=== PATIENT | female | born 1940 | race Caucasian/White ===

== ENCOUNTER → 2018-03-09 10:53 | Outpatient (CLI) | payer MEDICARE, OTHER, SELFPAY ==
--- NOTE | 2018-03-09 | DI.MG.S_ITS ---
BILATERAL DIGITAL SCREENING MAMMOGRAM 3D/2D WITH CAD: 03/09/2018 CLINICAL: Routine screening. Family history of breast cancer. Comparison is made to exams dated: 03/02/2017 mammogram, 02/04/2016 mammogram, and 01/15/2015 mammogram - [facility]. There are scattered fibroglandular elements in both breasts. Current study was also evaluated with a Computer Aided Detection (CAD) system. No significant masses, calcifications, or other findings are seen in either breast. There has been no significant interval change. IMPRESSION: NEGATIVE There is no mammographic evidence of malignancy. A 1 year screening mammogram is recommended. This exam was interpreted at Station ID: [id number]. NOTE: For mammograms, a report in lay terms will be sent to the patient. Approximately 15% of breast malignancies will not be visualized mammographically. In the management of a palpable breast mass, a negative mammogram must not discourage biopsy of a clinically suspicious lesion. Electronically Signed By: Shakir jeffrey/rina:03/09/2018 21:53:17 letter sent: Normal Exam ACR BI-RADS Category 1: Negative [id number]
== END ==
PROVIDERS: PCP Family Medicine; Visit Provider Family Medicine
DX: Z12.31 Encounter for screening mammogram for malignant neoplasm of breast (principal); Z80.3 Family history of malignant neoplasm of breast
CPT/HCPCS: 77063; 77067

== ENCOUNTER → 2018-03-22 13:34 | Outpatient (CLI) | payer MEDICARE, OTHER, SELFPAY | PROVIDERS: PCP Family Medicine; Visit Provider Family Medicine | DX: M85.852 Other specified disorders of bone density and structure, left thigh (principal); Z78.0 Asymptomatic menopausal state | CPT/HCPCS: 77080 ==

== ENCOUNTER 2018-12-15 08:01 | Day surgery (SDC) | payer MEDICARE, OTHER, SELFPAY ==
--- NOTE | 2018-12-15 | PATH_ITS ---
[facility] Accession Number: [id number] . 01 Material submitted: . PART A: cecum - CECAL POLYP PART B: sigmoid colon - DISTAL SIGMOID COLON POLYP X2 . 02 Diagnosis: A. Cecum, Polyp, Biopsy: Tubular adenoma. . B. Distal Sigmoid Colon, Polyps x2, Biopsie: Hyperplastic polyps. MRV/12/16/2018 . 02 Electronically signed: . Kimberly Mcintyre MD, Pathologist NPI- [id number] . 01 Gross description: . Part A: CECAL POLYP: Received in formalin is 1 fragment(s) of bagley, soft tissue measuring 0.4 x 0.3 x 0.3 cm which is entirely submitted and submitted entirely in 1 cassette(s) Part B: DISTAL SIGMOID COLON POLYP X2: Received in formalin are 3 fragment(s) of bagley, soft tissue measuring 0.1 x 0.1 x 0.1 cm to 0.3 x 0.2 x 0.2 cm which is entirely submitted and submitted entirely in 1 cassette(s) /DMC /DMC . 02 Pathologist provided ICD-10: D12.0 . 02 CPT . 007757, [id number] Performed at: 01 [facility] [address], [place], [place] [id number] MD Shakir Valero MD Phone: [phone] Performed at: 02 [facility] [address] [place], [place] [id number] MD Kimberly Mcintyre MD Phone: [phone]
[2018-12-15 08:28] VITALS: BMI 24.3
[2018-12-15 08:33] VITALS: BP 188/85; PULSE 71; RESP 16; TEMP 36.9; O2SAT 97
[2018-12-15] MEDS: SODIUM CHLORIDE 0.9% 1,000 ML 200 ML IV (08:45)
--- NOTE | 2018-12-15 08:47 | PM.HP.1 ---
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 Personal history of colon polyps has been over 5 years since her last colonoscopy. She is feeling healthy without intestinal complaints No family history of colon or rectal cancers. Tolerated her prep well. Patient History Medical History (Updated 12/15/18 @ 08:48 by Sin Sorensen MD) Melanoma (Acute) Surgical History (Updated 12/15/18 @ 08:48 by Sin Sorensen MD) H/O melanoma excision (Acute) Social History household members: spouse Family & Social History Social History: household members spouse Meds Home Medications Medication Instructions Recorded Confirmed Type aspirin [Aspirin Low Dose] 81 mg PO DAILY 12/15/18 12/15/18 History atorvastatin 10 mg PO QPM 12/15/18 12/15/18 History losartan 50 mg PO DAILY 12/15/18 12/15/18 History Allergies Allergy/AdvReac Type Severity Reaction Status Date / Time latex Allergy Intermediate Redness of Verified 12/15/18 08:21 Skin lisinopril Allergy Intermediate Rash Verified 12/15/18 08:21 codeine Allergy Mild Nausea Verified 12/15/18 08:21 Review of Systems Constitutional Constitutional: Denies fever(s) Eyes Eyes: Denies bulging eyes ENT Ears, Nose, Mouth, and Throat: No lip swelling Cardiovascular Cardiovascular: Denies generalize swelling Respiratory Respiratory: Denies stridor Gastrointestinal Gastrointestinal: Denies coffee ground emesis Musculoskeletal Musculoskeletal: Denies loss of height Integumentary/Breasts Skin/Breast: Denies wounds Neurologic Neurologic: Denies abnormal speech and Denies confusion Psychiatric Psychiatric: Denies confusion Endocrine Endocrine: Denies deepening of the voice Hematologic/Lymphatic Hematologic/Lymphatic: Denies lymphadenopathy Allergic/Immunologic Allergic/Immunologic: Denies lip swelling Exam Vital Signs (past 8 hours): - 12/15/18 08:33 Temperature 98.5 F Pulse Rate 71 Respiratory Rate 16 Blood Pressure 188/85 H Pulse Oximetry 97 Oxygen Delivery Method Room Air Const General: cooperative and healthy appearing Orientation: alert HENMN Head: normal to inspection Nose: nares normal Mouth: oral mucosae normal and lip normal Eyes Eyelids: eyelids normal Conjunctivae: conjunctivae normal Sclera: sclerae normal Neck Neck: supple and other (No thyromegally) Chest Chest: other (LCTAB , regular respiratory effort) Cardio Rhythm: regular rhythm Heart Sounds: S1 normal, S2 normal, no gallops, no murmurs and no rubs GI Other: Abdomen soft nontender nondistended Skin General: no rashes or lesions noted Neuro General: alert and awake Psych Appearance: grossly normal Affect: normal affect Assessment & Plan Assessment & Plan narrative: 78-year-old woman with history of colon polyps presents for her screening colonoscopy Risks of procedure including bleeding, , perforation, hypoxia, missed lesion all discussed Patient rated proceed, all questions answered
[2018-12-15] MEDS: fentaNYL 250 MCG/5 ML INJ IV (09:17)
[2018-12-15] MEDS: MIDAZOLAM 5 MG/5 ML VIAL IV (09:17)
--- NOTE | 2018-12-15 09:32 | PM.OP.ENDO ---
Operative Date/Time/Diagnoses Date of procedure: 12/15/18 Time of procedure: 09:32 Pre-op diagnosis: Screening colonoscopy, history of colon polyps Post-op diagnosis: same Procedure & Clinicians Study performed: Complete screening colonoscopy Cold biopsy polypectomy x3 Same procedure as scheduled: Yes Indications: 78-year-old woman with a history of colon polyps who presents for her overdue colonoscopy, last just over 5 years ago. Surgeon: Sin Sorensen Procedure Notes SCOAP/Timeout: Completed Procedure in detail: Patient was brought to the endoscopy suite, time-out was completed. She was sedated with midazolam 4 mg and fentanyl 100 mcg over the course for entire procedure. A digital rectal exam was performed which showed several small anal tags, no polyps or masses palpated. 160 cm colonoscope was introduced and navigated through the rectum rectosigmoid junction. At through the folds of the colon to the cecum. The cecum was identified by noting the gross foot, the appendiceal orifice, as well as a prominent ileocecal valve. The valve itself was patulous. The scope was then withdrawn slowly inspecting the mucosa. A small sessile cecal polyp was identified and removed entirely with a large biopsy forceps -cold. She was noted to have sigmoid diverticulitis. In the vicinity of the rectosigmoid junction likely in the distal sigmoid 2 small sessile polyps were identified -these were similarly removed with cold biopsy forceps. The scope was then retroflexed at the level of the anus there was several small skin tags as well as internal hemorrhoids identified. No masses. No other polyps Prep was adequate Scope withdrawal time: 14min Sedation minutes: 27 Findings: diverticulosis, internal hemorrhoids and polyp Impression: 1. Internal hemorrhoids 2. Sigmoid diverticulosis 3. Cecal polyp -small sessile status post polypectomy x1 4. Distal sigmoid colon polyp -small sessile x2 status post polypectomy Recommendations: Colonscopy in 5 years Plan for aftercare: PACU in Follow up: as needed Disposition: PACU
[2018-12-15 09:33] VITALS: BP 130/73; PULSE 85; RESP 12; TEMP 26.6; O2SAT 95
[2018-12-15 09:38] VITALS: BP 152/79; PULSE 87; RESP 16; O2SAT 96
[2018-12-15 09:41] VITALS: BP 157/85; PULSE 76; RESP 12; TEMP 36.2; O2SAT 96
[2018-12-15 09:52] VITALS: BP 160/80; PULSE 75; RESP 14; O2SAT 95
[2018-12-15 10:04] VITALS: BP 149/79; PULSE 65; RESP 16; TEMP 36.7; O2SAT 99
== END 2018-12-15 10:17 | disposition home or self-care (01) ==
PROVIDERS: PCP Family Medicine; Visit Provider Surgery
PROC: 0DJD8ZZ Inspection of Lower Intestinal Tract, Via Natural or Artificial Opening Endoscopic (ICD-10-PCS; CPT 45378; principal; 2018-12-15 09:15)
DX: Z86.010 Personal history of colon polyps (principal); Z85.820 Personal history of malignant melanoma of skin; K57.30 Diverticulosis of large intestine without perforation or abscess without bleeding; K64.8 Other hemorrhoids; K64.4 Residual hemorrhoidal skin tags; D12.0 Benign neoplasm of cecum; D12.5 Benign neoplasm of sigmoid colon
CPT/HCPCS: 45380; 88305; 99152; J2250; J3010

== ENCOUNTER 2019-01-26 10:24 | Observation (INO) | payer MEDICARE, OTHER, SELFPAY ==
[2019-01-26] VITALS (13 sets, daily range): BP systolic 116–218; BP diastolic 57–121; PULSE 57–99; RESP 15–20; TEMP 36–36.6; O2SAT 94–100; BMI 25.4
--- NOTE | 2019-01-26 | DI.ECHO.S_ITS ---
[facility]---------+ [facility] +---------+ : : [address] : : : [place], [place] : : : : [id number] : : : : Phone: [phone]+ Echocardiogram Report + + :Name: LUCÍA ABURTO Study Date: 01/26/2019 Height: 68 in : :[facility] Exam Location: IS Weight: 165 lb : : Gender: Female BSA: 1.9 m2 : :: 1940 Age: 78 yrs BP: 178/81 mmHg: :Reason For Study: Chest pain : :Ordering Physician: Akila : :Hospitalist Performed By: Ivonne Page : :Referring: DENISE HUSTON : + + Interpretation Summary 1) Normal left ventricular thickness, size, wall motion, and systolic function (EF 60-65%). 2) Normal right ventricular size and function. 3) No significant valvular abnormalities. 4) Hypertension present during the study (BP 178/81mmHg). 5) No prior Echo available for comparison. Procedure: A two-dimensional transthoracic echocardiogram with color flow and Doppler was performed. The study quality was technically adequate. There is no prior echocardiogram noted for this patient. The patient was in normal sinus rhythm during the exam. Left Ventricle: Left ventricular wall thickness is normal. The left ventricle is normal in size. The ejection fraction is estimated to be 60-65%. There are no focal wall motion abnormalities. Right Ventricle: The right ventricle is normal in size and function. Atria: Both atria are normal in size. There is no Doppler evidence for an interatrial shunt. Mitral Valve: The mitral valve is normal in structure and function. There is mild mitral annular calcification. There is trace mitral regurgitation. Aortic Valve: The aortic valve is grossly normal. The aortic valve opens well. There is no aortic valve stenosis. There is trace aortic regurgitation. Tricuspid Valve: The tricuspid valve is normal in structure and function. There is a trace or physiologic amount of tricuspid regurgitation. Pulmonary artery pressures cannot be estimated because of the lack of a measurable TR jet velocity. Pulmonic Valve: The pulmonic valve is not well visualized. There is a trace or physiologic amount of pulmonic regurgitation. Great Vessels: The aortic root is normal size. The ascending aorta is at the upper limits of normal in size. The aortic arch is normal in size. The pulmonary is not well visualized. The IVC is of normal diameter and collapses greater than 50% with a sniff. This suggests a low right atrial pressure of 3 mm Hg. Pericardium/ Pleura There is no pericardial effusion. There is no pleural effusion. MMode/2D Measurements & Calculations LVIDd: 4.5 cm Ao root diam: 2.8 cm LVIDs: 3.1 cm asc Aorta Diam: 3.5 cm FS: 30.6 % Ao Arch Diam (Prox Trans): 2.5 cm EPSS: 0.11 cm IVSd: 0.96 cm LVPWd: 0.87 cm LV forbes. diameter/BSA (cm/m^2): 2.4 LV sys. diameter/BSA (cm/m^2): 1.6 LA A2 area: 17.4 cm2 RA long axis: 4.5 cm LA A4 area: 21.6 cm2 RA area: 17.4 cm2 LA length (vol): 5.3 cm RA vol: 57.6 ml LA vol: 60.2 ml RA : 30.6 ml/m2 LA vol index: 31.9 ml/m2 IVC diam: 1.3 cm RVD1 (basal): 3.2 cm RVD2 (mid): 3.2 cm TAPSE: 2.5 cm Doppler Measurements & Calculations Ao V2 max: 143.4 cm/sec LVOT Max Bg: 111.5 cm/sec Ao V2 mean: 91.3 cm/sec LV V1 max P.0 mmHg Ao max P.2 mmHg LV V1 VTI: 23.7 cm Ao mean P.8 mmHg sev ratio: 0.73 Ao V2 VTI: 32.4 cm MV E max bg: 68.8 cm/sec PA V2 max: 79.8 cm/sec MV A max bg: 96.9 cm/sec PA V2 mean: 58.6 cm/sec MV E/A: 0.71 PA mean P.5 mmHg Med Peak E' Bg: 8.1 cm/sec PA Accel Time: 0.11 sec E/E' med: 8.5 Lat Peak E' Bg: 6.6 cm/sec E/E' lat: 10.4 E/e' average: 9.5 MV dec time: 0.19 sec Reading Physician:04:20 PM
--- NOTE | 2019-01-26 10:37 | DI.RAD.S_ITS ---
PROCEDURE: XR CHEST 1V INDICATIONS: hypertension, left arm discomfort TECHNIQUE: One view of the chest was acquired. COMPARISON: None. FINDINGS: Surgical changes and devices: None. Lungs and pleura: Lung volumes are decreased. Mild bibasilar opacities more pronounced on the left. No focal consolidation. No pneumothorax. No pleural effusion. Mediastinum: Mediastinal contours appear normal. Heart size is normal. Bones and chest wall: No suspicious bony lesions. Overlying soft tissues appear unremarkable. IMPRESSION: Decreased lung volumes with left greater than right mild bibasilar opacities which are favored to represent atelectasis. No focal consolidation. Dictated by: Shiva Zavala M.D. on 01/26/2019 at 11:24 Approved by: Shiva Zavala M.D. on 01/26/2019 at 11:26
--- NOTE | 2019-01-26 10:47 | ED.GENADULT ---
HPI - General Adult General Chief complaint: Hypertension Stated complaint: High blood pressure Time Seen by Provider: 01/26/19 10:36 Source: patient and family ( is in the room) Mode of arrival: ambulatory Limitations: no limitations History of Present Illness HPI narrative: This is a 78-year-old female who comes in with complaint of greater than 24 hours of left shoulder discomfort. She describes it sort of being in the left upper chest radiating sort of into her shoulder she has some heaviness down her arm. She states that really pain just sort of discomfort and heaviness. It has been pretty constant without any change. Nothing seems to make it worse. Nothing seems to make it better. She denies any neck pain. She initially woke up with it and thought it might be from lying in bed offered Laura. Patient denies any pain elsewhere in her chest. She denies any radiation to her neck or back she denies any shortness of breath she has felt a little nauseated. She denies any vomiting. No diarrhea or constipation or new urinary symptoms. She has felt a little dizzy. She checked her blood pressure this morning and noted it was quite high, she took her usual losartan which is normally taken at 11:00 a.m., she took a little bit early today. It did not improve it. She also takes atorvastatin aspirin 81 mg which she both had last night. She denies any tobacco, drinks about 2 glasses of wine nightly, no illicit. She has not had any stress testing or cardiac evaluation otherwise. She follows with Dr. Adan. She is allergic to lisinopril and states that she gets hives. Related Data Home Medications Medication Instructions Recorded Confirmed aspirin [Aspirin Low Dose] 81 mg PO QPM 12/15/18 01/26/19 atorvastatin 10 mg PO QPM 12/15/18 01/26/19 losartan 50 mg PO DAILY 01/26/19 01/26/19 Allergies Allergy/AdvReac Type Severity Reaction Status Date / Time latex Allergy Intermediate Redness of Verified 12/15/18 08:21 Skin lisinopril Allergy Intermediate Rash Verified 12/15/18 08:21 codeine Allergy Mild Nausea Verified 12/15/18 08:21 Review of Systems Review of Systems ROS Unobtainable: All systems reviewed & are unremarkable except as noted in HPI and below Constitutional Denies chills, Denies fever(s), Denies lethargy and Denies weakness ENT Ears, Nose, Mouth, and Throat: Denies neck pain Cardiovascular Reports chest pain (Left shoulder pressure), Reports chest pain at rest, Denies diaphoresis, Denies syncope, Denies rapid heart rate, Reports pedal edema (Resolved), Reports lightheadedness (Dizziness), Denies palpitations, Denies dyspnea, Denies dyspnea on exertion and Denies orthopnea Respiratory Denies change in phlegm color, Denies chest congestion, Denies cough, Denies dyspnea, Denies dyspnea on exertion and Denies wheezing Gastrointestinal Gastrointestinal: Denies abdominal pain, Denies change in bowel habits, Denies diarrhea, Reports nausea and Denies vomiting Genitourinary Denies hematuria, Denies dysuria, Denies urinary incontinence and Denies urinary urgency Musculoskeletal Denies back pain, Reports arthralgias (Left shoulder discomfort), Denies neck pain, Denies numbness and Denies tingling Neurologic Denies syncope, Denies focal weakness, Denies numbness, Denies sensory deficit, Denies tingling and Denies weakness Endocrine Denies palpitations Allergic/Immunologic Denies wheezing FORMERLY [facility], 1928–1983 Medical History (Updated 01/26/19 @ 13:40 by Jeanna Hinkle MD) Alopecia (Chronic) Colon polyps (Chronic) Dyslipidemia (Chronic) History of foot fracture (Chronic) Hypertension (Chronic) Osteoarthritis (Chronic) Osteopenia (Chronic) Overactive bladder (Chronic) Melanoma (Chronic) Surgical History (Updated 01/26/19 @ 13:40 by Jeanna Hinkle MD) H/O Achilles tendon repair (Acute) S/P foot surgery, right (Chronic) H/O melanoma excision (Chronic) Family History (Updated 01/26/19 @ 13:28 by Jeanna Hinkle MD) Father Hypertension Social History (Updated 01/26/19 @ 10:58 by Tatum Carey DO) marital status: household members: spouse Smoking Status: Never smoker alcohol intake: current substance use type: does not use Family History (Updated 01/26/19 @ 13:28 by Jeanna Hinkle MD) Father Hypertension Social History (Updated 01/26/19 @ 10:58 by Tatum Carey DO) marital status: household members: spouse Smoking Status: Never smoker alcohol intake: current substance use type: does not use Exam Narrative Exam Narrative: GENERAL: Alert and oriented x three, well-nourished, well-appearing female in no acute distress. HEENT: Head normocephalic, atraumatic, EOMI, pupils reactive, face symmetric, moist mucous membranes NECK: Supple, full range of motion CARDIOVASCULAR: Regular rate and rhythm without murmurs, rubs or gallops. Not able to reproduce chest pain with palpation. No rash appreciated. 2+ pulses bilateral upper extremities. RESPIRATORY: Breath sounds equal bilaterally, no wheezes rales or rhonchi. ABDOMEN: Soft, nontender. Normoactive bowel sounds all 4 quadrants. No guarding or rebound, rigidity, no mass : No CVA tenderness EXTREMITIES: Normal range of motion, no clubbing or edema. Neurovascularly intact NEUROLOGICAL: Cranial nerves II through XII grossly intact. Moving all extremities SKIN: Warm, dry, no petechiae, no rashes or lesions. Initial Vital Signs Initial Vital Signs: Vital Signs Pulse Rate 99 H 01/26/19 10:35 Respiratory Rate 20 01/26/19 10:35 Blood Pressure 218/88 H 01/26/19 10:35 Pulse Oximetry 98 01/26/19 10:35 Scores HEART Score Heart Score history: Moderately Suspicious Heart Score Age: > or = 65 years old Heart Score risk factors: 1-2 risk factors Course Orders Ordered: ED Orders 01/26/19 10:35 EKG-12 Lead Stat 01/26/19 10:37 XR chest 1V Stat 01/26/19 10:50 Complete Blood Count AUTO DIFF Stat Comprehensive Metabolic Panel Stat Lipase Stat Troponin & CK Cardiac Panel Stat 01/26/19 13:04 Education, smoking cessation ONGOING 01/26/19 13:08 Consult to Discharge Planning Routine 01/26/19 15:30 Troponin I Q8H 01/26/19 21:15 Troponin I Q8H Acetaminophen (Tylenol) 650 mg PO Q6HR PRN PRN Reason: As Needed for Fever/Mild Pain Al Hydrox/Mg Hydrox/Simethicone (Maalox Plus) 30 ml PO Q6HR PRN PRN Reason: Dyspepsia Aspirin (Aspirin Ec) 81 mg PO QPM [facility] Last Admin: 01/26/19 17:18 Dose: 81 mg Atorvastatin Calcium (Lipitor) 10 mg PO QPM [facility] Last Admin: 01/26/19 17:18 Dose: 10 mg Bisacodyl (Dulcolax) 10 mg PO DAILY PRN PRN Reason: Constipation Calcium Carbonate (Tums) 1,000 mg PO Q4HR PRN PRN Reason: Dyspepsia Enoxaparin Sodium (Lovenox) 40 mg SUBCUT DAILY [facility] Last Admin: 01/26/19 13:35 Dose: 40 mg Sodium Chloride (Normal Saline 0.9%) 1,000 mls @ 150 mls/hr IV CONT [facility] Last Admin: 01/26/19 11:15 Dose: 150 mls/hr Sodium Chloride (Normal Saline 0.9%) 1,000 mls @ 125 mls/hr IV CONT [facility] Last Admin: 01/26/19 13:34 Dose: 125 mls/hr Ibuprofen (Advil) 600 mg PO Q6HR PRN PRN Reason: As Needed for Fever/Mild Pain Losartan Potassium (Cozaar) 50 mg PO DAILY [facility] Morphine Sulfate (Morphine) 2 mg IV Q4HR PRN PRN Reason: Chest Pain Morphine Sulfate (Morphine) 2 mg IV Q5MIN PRN PRN Reason: Chest Pain Nitroglycerin (Nitrostat) 0.4 mg SL [id number] PRN PRN Reason: Chest Pain Last Admin: 01/26/19 11:15 Dose: 0.4 mg Ondansetron HCl (Zofran) 4 mg IV Q8HR PRN PRN Reason: Nausea And Vomiting Ondansetron HCl (Zofran Odt) 4 mg PO Q8HR PRN PRN Reason: Nausea And Vomiting Discontinued Medications Acetaminophen (Tylenol) 650 mg PO NOW ONE Stop: 01/26/19 11:29 Last Admin: 01/26/19 11:30 Dose: 650 mg Acetaminophen (Tylenol) 650 mg PO Q6HR PRN PRN Reason: As Needed for Fever/Mild Pain Aspirin (Aspirin Chew) 324 mg PO NOW ONE Stop: 01/26/19 10:56 Last Admin: 01/26/19 11:20 Dose: 324 mg Nitroglycerin (Nitrostat) 0.4 mg SL [id number] PRN PRN Reason: Chest Pain Nitroglycerin (Nitrostat) 0.4 mg SL [id number] PRN PRN Reason: Chest Pain Ondansetron HCl (Zofran) 4 mg IV Q4HR PRN PRN Reason: Nausea And Vomiting Vital Signs - 8 hr 01/26/19 10:35 01/26/19 11:00 01/26/19 11:15 Temperature Pulse Rate 99 H 63 76 Respiratory Rate 20 16 Blood Pressure 218/88 H 160/121 H Blood Pressure [Right Arm] 160/121 H Pulse Oximetry 98 98 01/26/19 11:29 01/26/19 11:50 01/26/19 12:00 Temperature Pulse Rate 66 64 57 L Respiratory Rate 18 15 Blood Pressure 158/89 H Blood Pressure [Right Arm] 158/79 H 143/70 H Pulse Oximetry 98 100 01/26/19 12:30 01/26/19 13:30 01/26/19 15:25 Temperature 96.8 F L 97.7 F Pulse Rate 66 68 63 Respiratory Rate 16 16 17 Blood Pressure 178/81 H 186/76 H Blood Pressure [Right Arm] 163/79 H Pulse Oximetry 100 95 97 01/26/19 15:30 Temperature Pulse Rate Respiratory Rate Blood Pressure Blood Pressure [Right Arm] Pulse Oximetry 97 Medical Decision Making Lab Data Lab results reviewed: Yes I reviewed the patient's lab results. Result diagrams: 01/26/19 10:50 01/26/19 10:50 Lab Results 01/26/19 01/26/19 01/26/19 Range/Units 10:50 10:50 15:30 WBC 6.5 (4.5-11.0) X10^3/uL RBC 4.94 (4.0-5.2) X10^6/uL Hgb 14.8 (12.0-16.0) g/dL Hct 45.2 (36-46) % MCV 91.5 (80-100) fL MCH 30.0 (26-34) PG MCHC 32.8 (30-36) % RDW 14.1 (11.6-14.8) % Plt Count 260 (150-400) X10^3/uL Neut % (Auto) 67.1 (50-75) % Lymph % (Auto) 21.4 L (25-40) % [place] % (Auto) 8.2 (3-14) % Eos % (Auto) 2.4 (2-4) % Baso % (Auto) 0.9 (0-2) % Neut # (Auto) 4300 (5565-6354) /uL Lymph # (Auto) 1400 (6354-5366) /uL [place] # (Auto) 500 (0-900) /uL Eos # (Auto) 200 (0-450) /uL Baso # (Auto) 100 (0-100) /uL Sodium 141 (137-145) mmol/L Potassium 3.6 (3.4-5.1) mmol/L Chloride 105 (98-107) mmol/L Carbon Dioxide 29 (22-32) mmol/L BUN 17 (7-17) mg/dL Creatinine 0.80 (0.52-1.04) mg/dL Estimated GFR > 60.0 (>60) mL/min BUN/Creatinine Ratio 21.3 (6-22) Glucose 102 (80-110) mg/dL Calcium 9.3 (8.4-10.2) mg/dL Total Bilirubin 1.0 (0.2-1.3) mg/dL AST 25 (14-36) IU/L ALT 24 (9-52) IU/L Alkaline Phosphatase 85 (38-126) U/L Total Creatine Kinase 52 (30-135) U/L CK-MB (CK-2) TNP CK-MB (CK-2) Rel Index TNP Troponin I < 0.012 < 0.012 (0.01-0.034) ng/mL Total Protein 7.3 (6.3-8.2) g/dL Albumin 4.3 (3.5-5.0) g/dL Globulin 3.0 (1.7-4.1) g/dL Albumin/Globulin Ratio 1.4 (1.0-2.8) Lipase 79 (23-300) U/L Urine Dip Bedside Urine Glucose Negative Bedside Urine Bilirubin - Negative Bedside Urine Ketone - Negative Urine Specific [place] 1.015 Bedside Urine Occult Blood - Negative Bedside Urine pH 7 Bedside Urine Protein - Negative Bedside Urine Urobilinogen - Negative Bedside Urine Nitrite - Negative Bedside Urine Leukocytes - Negative Esterase Point of care testing: Urine Dip Bedside Urine Glucose Negative Bedside Urine Bilirubin - Negative Bedside Urine Ketone - Negative Urine Specific [place] 1.015 Bedside Urine Occult Blood - Negative Bedside Urine pH 7 Bedside Urine Protein - Negative Bedside Urine Urobilinogen - Negative Bedside Urine Nitrite - Negative Bedside Urine Leukocytes - Negative Esterase Imaging Data Chest x-ray: Radiologist's impression: [address] [address] XRay Report Signed Patient: Kami Gonzales LMR#: [id number] : 3Acct:[id number] Age/Sex: 78 / FDate of Service: 01/26/19 Loc: ED Accession Number: [id number] Procedure: XR chest 1V Ordering Provider: Tatum Carey D.O. PROCEDURE: XR CHEST 1V INDICATIONS: hypertension, left arm discomfort TECHNIQUE: One view of the chest was acquired. COMPARISON: None. FINDINGS: Surgical changes and devices: None. Lungs and pleura: Lung volumes are decreased. Mild bibasilar opacities more pronounced on the left. No focal consolidation. No pneumothorax. No pleural effusion. Mediastinum: Mediastinal contours appear normal. Heart size is normal. Bones and chest wall: No suspicious bony lesions. Overlying soft tissues appear unremarkable. IMPRESSION: Decreased lung volumes with left greater than right mild bibasilar opacities which are favored to represent atelectasis. No focal consolidation. Dictated by: Shiva Zavala M.D. on 01/26/2019 at 11:24 Approved by: Shiva Zavala M.D. on 01/26/2019 at 11:26 ECG Data Attestation: I personally reviewed and interpreted this ECG as follows: Prior ECG tracings: not available for review Interpretation: Sinus rhythm with a rate of 72 P are 173 QRS of 98 and QTC of 432. No ST elevation or depression. No prior EKG available. [facility] Narrative Medical decision making narrative: Patient's history is moderately concerning for cardiac cause although she does not have any EKG changes. Troponin was sent. Patient was given aspirin. She was elevated initially on blood pressure recheck was a little bit better but plan for nitro to see how patient Dandre traumas with her shoulder discomfort. Patient's shoulder discomfort resolved with nitro, EKG and troponin are negative. Patient's lab work does not show other acute changes. Patient's chest x-ray showed decreased lung volumes with left greater than right bibasilar opacities which are favored to represent atelectasis. On exam patient's on little worse but no clear examination findings. Patient did develop a headache and was given Tylenol after receiving the nitro. Chest pressure has resolved I spoke with patient's primary care team and discussed observation for chest pain. Spoke with Dr. Hinkle who accepts she has for holding orders. She will enter for serial enzymes and see the patient after clinic. Discharge Plan Departure Patient Disposition: Admitted as Observation Clinical Impression: Atypical chest pain, Hypertension Discharge Date/Time: 01/26/19 13:10 Interventions: ED Discharge Assessment Last Done: 01/26/19 13:10 Referrals: Jeanna Hinkle MD [Primary Care Provider] - Admit Date/Time: 01/26/19 12:13 Admit Provider: Jeanna Hinkle
--- NOTE | 2019-01-26 11:01 | ED_ITS ---
HPI - General Adult General Chief complaint: Hypertension Stated complaint: High blood pressure Time Seen by Provider: 01/26/19 10:36 Source: patient and family ( is in the room) Mode of arrival: ambulatory Limitations: no limitations History of Present Illness HPI narrative: This is a 78-year-old female who comes in with complaint of greater than 24 hours of left shoulder discomfort. She describes it sort of being in the left upper chest radiating sort of into her shoulder she has some heaviness down her arm. She states that really pain just sort of discomfort and heaviness. It has been pretty constant without any change. Nothing seems to make it worse. Nothing seems to make it better. She denies any neck pain. She initially woke up with it and thought it might be from lying in bed offered Laura. Patient denies any pain elsewhere in her chest. She denies any radiation to her neck or back she denies any shortness of breath she has felt a little nauseated. She denies any vomiting. No diarrhea or constipation or new urinary symptoms. She has felt a little dizzy. She checked her blood pressure this morning and noted it was quite high, she took her usual losartan which is normally taken at 11:00 a.m., she took a little bit early today. It did not improve it. She also takes atorvastatin aspirin 81 mg which she both had last night. She denies any tobacco, drinks about 2 glasses of wine nightly, no illicit. She has not had any stress testing or cardiac evaluation otherwise. She follows with Dr. Adan. She is allergic to lisinopril and states that she gets hives. Related Data Home Medications Medication Instructions Recorded Confirmed aspirin [Aspirin Low Dose] 81 mg PO QPM 12/15/18 01/26/19 atorvastatin 10 mg PO QPM 12/15/18 01/26/19 losartan 50 mg PO DAILY 01/26/19 01/26/19 Allergies Allergy/AdvReac Type Severity Reaction Status Date / Time latex Allergy Intermediate Redness of Verified 12/15/18 08:21 Skin lisinopril Allergy Intermediate Rash Verified 12/15/18 08:21 codeine Allergy Mild Nausea Verified 12/15/18 08:21 Review of Systems Review of Systems ROS Unobtainable: All systems reviewed & are unremarkable except as noted in HPI and below Constitutional Denies chills, Denies fever(s), Denies lethargy and Denies weakness ENT Ears, Nose, Mouth, and Throat: Denies neck pain Cardiovascular Reports chest pain (Left shoulder pressure), Reports chest pain at rest, Denies diaphoresis, Denies syncope, Denies rapid heart rate, Reports pedal edema (Resolved), Reports lightheadedness (Dizziness), Denies palpitations, Denies dy spnea, Denies dyspnea on exertion and Denies orthopnea Respiratory Denies change in phlegm color, Denies chest congestion, Denies cough, Denies dyspnea, Denies dyspnea on exertion and Denies wheezing Gastrointestinal Gastrointestinal: Denies abdominal pain, Denies change in bowel habits, Denies diarrhea, Reports nausea and Denies vomiting Genitourinary Denies hematuria, Denies dysuria, Denies urinary incontinence and Denies urinary urgency Musculoskeletal Denies back pain, Reports arthralgias (Left shoulder discomfort), Denies neck pain, Denies numbness and Denies tingling Neurologic Denies syncope, Denies focal weakness, Denies numbness, Denies sensory deficit, Denies tingling and Denies weakness Endocrine Denies palpitations Allergic/Immunologic Denies wheezing [facility] Medical History (Updated 01/26/19 @ 13:40 by Jeanna Hinkle MD) Alopecia (Chronic) Colon polyps (Chronic) Dyslipidemia (Chronic) History of foot fracture (Chronic) Hypertension (Chronic) Osteoarthritis (Chronic) Osteopenia (Chronic) Overactive bladder (Chronic) Melanoma (Chronic) Surgical History (Updated 01/26/19 @ 13:40 by Jeanna Hinkle MD) H/O Achilles tendon repair (Acute) S/P foot surgery, right (Chronic) H/O melanoma excision (Chronic) Family History (Updated 01/26/19 @ 13:28 by Jeanna Hinkle MD) Father Hypertension Social History (Updated 01/26/19 @ 10:58 by Tatum Carey DO) marital status: household members: spouse Smoking Status: Never smoker alcohol intake: current substance use type: does not use Family History (Updated 01/26/19 @ 13:28 by Jeanna Hinkle MD) Father Hypertension Social History (Updated 01/26/19 @ 10:58 by Tatum Carey DO) marital status: household members: spouse Smoking Status: Never smoker alcohol intake: current substance use type: does not use Exam Narrative Exam Narrative: GENERAL: Alert and oriented x three, well-nourished, well- appearing female in no acute distress. HEENT: Head normocephalic, atraumatic, EOMI, pupils reactive, face symmetric, moist mucous membranes NECK: Supple, full range of motion CARDIOVASCULAR: Regular rate and rhythm without murmurs, rubs or gallops. Not able to reproduce chest pain with palpation. No rash appreciated. 2+ pulses bilateral upper extremities. RESPIRATORY: Breath sounds equal bilaterally, no wheezes rales or rhonchi. ABDOMEN: Soft, nontender. Normoactive bowel sounds all 4 quadrants. No guarding or rebound, rigidity, no mass : No CVA tenderness EXTREMITIES: Normal range of motion, no clubbing or edema. Neurovascularly intact NEUROLOGICAL: Cranial nerves II through XII grossly intact. Moving all extremities SKIN: Warm, dry, no petechiae, no rashes or lesions. Initial Vital Signs Initial Vital Signs: Vital Signs Pulse Rate 99 H 01/26/19 10:35 Respiratory Rate 20 01/26/19 10:35 Blood Pressure 218/88 H 01/26/19 10:35 Pulse Oximetry 98 01/26/19 10:35 Scores HEART Score Heart Score history: Moderately Suspicious Heart Score Age: > or = 65 years old Heart Score risk factors: 1-2 risk factors Course Orders Ordered: ED Orders 01/26/19 10:35 EKG-12 Lead Stat 01/26/19 10:37 XR chest 1V Stat 01/26/19 10:50 Complete Blood Count AUTO DIFF Stat Comprehensive Metabolic Panel Stat Lipase Stat Troponin & CK Cardiac Panel Stat 01/26/19 13:04 Education, smoking cessation ONGOING 01/26/19 13:08 Consult to Discharge Planning Routine 01/26/19 15:30 Troponin I Q8H 01/26/19 21:15 Troponin I Q8H Acetaminophen (Tylenol) 650 mg PO Q6HR PRN PRN Reason: As Needed for Fever/Mild Pain Al Hydrox/Mg Hydrox/Simethicone (Maalox Plus) 30 ml PO Q6HR PRN PRN Reason: Dyspepsia Aspirin (Aspirin Ec) 81 mg PO QPM [facility] Last Admin: 01/26/19 17:18 Dose: 81 mg Atorvastatin Calcium (Lipitor) 10 mg PO QPM [facility] Last Admin: 01/26/19 17:18 Dose: 10 mg Bisacodyl (Dulcolax) 10 mg PO DAILY PRN PRN Reason: Constipation Calcium Carbonate (Tums) 1,000 mg PO Q4HR PRN PRN Reason: Dyspepsia Enoxaparin Sodium (Lovenox) 40 mg SUBCUT DAILY [facility] Last Admin: 01/26/19 13:35 Dose: 40 mg Sodium Chloride (Normal Saline 0.9%) 1,000 mls @ 150 mls/hr IV CONT [facility] Last Admin: 01/26/19 11:15 Dose: 150 mls/hr Sodium Chloride (Normal Saline 0.9%) 1,000 mls @ 125 mls/hr IV CONT [facility] Last Admin: 01/26/19 13:34 Dose: 125 mls/hr Ibuprofen (Advil) 600 mg PO Q6HR PRN PRN Reason: As Needed for Fever/Mild Pain Losartan Potassium (Cozaar) 50 mg PO DAILY [facility] Morphine Sulfate (Morphine) 2 mg IV Q4HR PRN PRN Reason: Chest Pain Morphine Sulfate (Morphine) 2 mg IV Q5MIN PRN PRN Reason: Chest Pain Nitroglycerin (Nitrostat) 0.4 mg SL [id number] PRN PRN Reason: Chest Pain Last Admin: 01/26/19 11:15 Dose: 0.4 mg Ondansetron HCl (Zofran) 4 mg IV Q8HR PRN PRN Reason: Nausea And Vomiting Ondansetron HCl (Zofran Odt) 4 mg PO Q8HR PRN PRN Reason: Nausea And Vomiting Discontinued Medications Acetaminophen (Tylenol) 650 mg PO NOW ONE Stop: 01/26/19 11:29 Last Admin: 01/26/19 11:30 Dose: 650 mg Acetaminophen (Tylenol) 650 mg PO Q6HR PRN PRN Reason: As Needed for Fever/Mild Pain Aspirin (Aspirin Chew) 324 mg PO NOW ONE Stop: 01/26/19 10:56 Last Admin: 01/26/19 11:20 Dose: 324 mg Nitroglycerin (Nitrostat) 0.4 mg SL [id number] PRN PRN Reason: Chest Pain Nitroglycerin (Nitrostat) 0.4 mg SL [id number] PRN PRN Reason: Chest Pain Ondansetron HCl (Zofran) 4 mg IV Q4HR PRN PRN Reason: Nausea And Vomiting Vital Signs - 8 hr 01/26/19 10:35 01/26/19 11:00 01/26/19 11:15 Temperature Pulse Rate 99 H 63 76 Respiratory Rate 20 16 Blood Pressure 218/88 H 160/121 H Blood Pressure [Right Arm] 160/121 H Pulse Oximetry 98 98 01/26/19 11:29 01/26/19 11:50 01/26/19 12:00 Temperature Pulse Rate 66 64 57 L Respiratory Rate 18 15 Blood Pressure 158/89 H Blood Pressure [Right Arm] 158/79 H 143/70 H Pulse Oximetry 98 100 01/26/19 12:30 01/26/19 13:30 01/26/19 15:25 Temperature 96.8 F L 97.7 F Pulse Rate 66 68 63 Respiratory Rate 16 16 17 Blood Pressure 178/81 H 186/76 H Blood Pressure [Right Arm] 163/79 H Pulse Oximetry 100 95 97 01/26/19 15:30 Temperature Pulse Rate Respiratory Rate Blood Pressure Blood Pressure [Right Arm] Pulse Oximetry 97 Medical Decision Making Lab Data Lab results reviewed: Yes I reviewed the patient's lab results. Result diagrams: 01/26/19 10:50 01/26/19 10:50 Lab Results 01/26/19 01/26/19 01/26/19 Range/Units 10:50 10:50 15:30 WBC 6.5 (4.5-11.0) X10^3/uL RBC 4.94 (4.0-5.2) X10^6/uL Hgb 14.8 (12.0-16.0) g/dL Hct 45.2 (36-46) % MCV 91.5 (80-100) fL MCH 30.0 (26-34) PG MCHC 32.8 (30-36) % RDW 14.1 (11.6-14.8) % Plt Count 260 (150-400) X10^3/uL Neut % (Auto) 67.1 (50-75) % Lymph % (Auto) 21.4 L (25-40) % [place] % (Auto) 8.2 (3-14) % Eos % (Auto) 2.4 (2-4) % Baso % (Auto) 0.9 (0-2) % Neut # (Auto) 4300 (5321-8242) /uL Lymph # (Auto) 1400 (3021-8744) /uL [place] # (Auto) 500 (0-900) /uL Eos # (Auto) 200 (0-450) /uL Baso # (Auto) 100 (0-100) /uL Sodium 141 (137-145) mmol/L Potassium 3.6 (3.4-5.1) mmol/L Chloride 105 (98-107) mmol/L Carbon Dioxide 29 (22-32) mmol/L BUN 17 (7-17) mg/dL Creatinine 0.80 (0.52-1.04) mg/dL Estimated GFR > 60.0 (>60) mL/min BUN/Creatinine Ratio 21.3 (6-22) Glucose 102 (80-110) mg/dL Calcium 9.3 (8.4-10.2) mg/dL Total Bilirubin 1.0 (0.2-1.3) mg/dL AST 25 (14-36) IU/L ALT 24 (9-52) IU/L Alkaline Phosphatase 85 (38-126) U/L Total Creatine Kinase 52 (30-135) U/L CK-MB (CK-2) TNP CK-MB (CK-2) Rel Index TNP Troponin I < 0.012 < 0.012 (0.01-0.034) ng/mL Total Protein 7.3 (6.3-8.2) g/dL Albumin 4.3 (3.5-5.0) g/dL Globulin 3.0 (1.7-4.1) g/dL Albumin/Globulin Ratio 1.4 (1.0-2.8) Lipase 79 (23-300) U/L Urine Dip Bedside Urine Glucose Negative Bedside Urine Bilirubin - Negative Bedside Urine Ketone - Negative Urine Specific [employer] 1.015 Bedside Urine Occult Blood - Negative Bedside Urine pH 7 Bedside Urine Protein - Negative Bedside Urine Urobilinogen - Negative Bedside Urine Nitrite - Negative Bedside Urine Leukocytes - Negative Esterase Point of care testing: Urine Dip Bedside Urine Glucose Negative Bedside Urine Bilirubin - Negative Bedside Urine Ketone - Negative Urine Specific [employer] 1.015 Bedside Urine Occult Blood - Negative Bedside Urine pH 7 Bedside Urine Protein - Negative Bedside Urine Urobilinogen - Negative Bedside Urine Nitrite - Negative Bedside Urine Leukocytes - Negative Esterase Imaging Data Chest x-ray: Radiologist's impression: [address] [address] XRay Report Signed Patient: Kami Gonzales LMR#: [id number] : 3Acct:[id number] Age/Sex: 78 / FDate of Service: 01/26/19 Loc: ED Accession Number: [id number] Procedure: XR chest 1V Ordering Provider: Tatum Carey D.O. PROCEDURE: XR CHEST 1V INDICATIONS: hypertension, left arm discomfort TECHNIQUE: One view of the chest was acquired. COMPARISON: None. FINDINGS: Surgical changes and devices: None. Lungs and pleura: Lung volumes are decreased. Mild bibasilar opacities more pronounced on the left. No focal consolidation. No pneumothorax. No pleural effusion. Mediastinum: Mediastinal contours appear normal. Heart size is normal. Bones and chest wall: No suspicious bony lesions. Overlying soft tissues appear unremarkable. IMPRESSION: Decreased lung volumes with left greater than right mild bibasilar opacities which are favored to represent atelectasis. No focal consolidation. Dictated by: Shiva Zavala M.D. on 01/26/2019 at 11:24 Approved by: Shiva Zavala M.D. on 01/26/2019 at 11:26 ECG Data Attestation: I personally reviewed and interpreted this ECG as follows: Prior ECG tracings: not available for review Interpretation: Sinus rhythm with a rate of 72 P are 173 QRS of 98 and QTC of 432. No ST elevation or depression. No prior EKG available. MDM Narrative Medical decision making narrative: Patient's history is moderately concerning for cardiac cause although she does not have any EKG changes. Troponin was sent. Patient was given aspirin. She was elevated initially on blood pressure recheck was a little bit better but plan for nitro to see how patient Dandre traumas with her shoulder discomfort. Patient's shoulder discomfort resolved with nitro, EKG and troponin are negative. Patient's lab work does not show other acute changes. Patient's chest x-ray showed decreased lung volumes with left greater than right bibasilar opacities which are favored to represent atelectasis. On exam patient's on little worse but no clear examination findings. Patient did develop a headache and was given Tylenol after receiving the nitro. Chest pressure has resolved I spoke with patient's primary care team and discussed observation for chest pain. Spoke with Dr. Hinkle who accepts she has for holding orders. She will enter for serial enzymes and see the patient after clinic. Discharge Plan Departure Patient Disposition: Admitted as Observation Clinical Impression: Atypical chest pain, Hypertension Discharge Date/Time: 01/26/19 13:10 Interventions: ED Discharge Assessment Last Done: 01/26/19 13:10 Referrals: Jeanna Hinkle MD [Primary Care Provider] - Admit Date/Time: 01/26/19 12:13 Admit Provider: Jeanna Hinkle
[2019-01-26 11:02] LABS: Add Manual Diff / Slide Review NO; Basophils Absolute Auto 100 /uL (0-100); Basophils Percent Auto 0.9 % (0-2); Eosinophils Absolute Auto 200 /uL (0-450); Eosinophils Percent Auto 2.4 % (2-4); Hematocrit 45.2 % (36-46); Hemoglobin 14.8 g/dL (12.0-16.0); Lymphocytes Absolute Auto 1400 /uL (1100-4500); Lymphocytes Percent Auto 21.4 % (25-40); Mean Corpuscular HGB Conc 32.8 % (30-36); Mean Corpuscular Volume 91.5 fL (80-100); Monocytes Absolute Auto 500 /uL (0-900); Monocytes Percent Auto 8.2 % (3-14); Neutrophils Absolute Auto 4300 /uL (1500-7000); Neutrophils Percent Auto 67.1 % (50-75); Platelet Count 260 X10^3/uL (150-400); Red Blood Cell Count 4.94 X10^6/uL (4.0-5.2); Red Cell Distribution Width 14.1 % (11.6-14.8); White Blood Cell Count 6.5 X10^3/uL (4.5-11.0)
[2019-01-26 11:13] LABS: Alanine Aminotransferase 24 IU/L (9-52); Albumin 4.3 g/dL (3.5-5.0); Albumin Globulin Ratio 1.4 (1.0-2.8); Alkaline Phosphatase 85 U/L (38-126); Aspartate Aminotransferase 25 IU/L (14-36); BUN Creatinine Ratio 21.3 (6-22); Blood Urea Nitrogen 17 mg/dL (7-17); Calcium 9.3 mg/dL (8.4-10.2); Carbon Dioxide 29 mmol/L (22-32); Chloride 105 mmol/L (98-107); Creatine Kinase 52 U/L (30-135); Estimated Glomerular Filt Rate > 60.0 mL/min (>60); Glucose 102 mg/dL (80-110); HEMOLYSIS 18 (0-50); Lipase 79 U/L (23-300); Potassium 3.6 mmol/L (3.4-5.1); Sodium 141 mmol/L (137-145); Total Protein 7.3 g/dL (6.3-8.2)
[2019-01-26] MEDS: SODIUM CHLORIDE 0.9% 1,000 ML 150 ML IV (11:15)
[2019-01-26] MEDS: NITROGLYCERIN 0.4 MG SL TAB SL (11:15)
[2019-01-26] MEDS: ASPIRIN 81 MG TAB 324 MG PO (11:20)
[2019-01-26 11:24] LABS: Troponin I < 0.012 ng/mL (0.01-0.034)
[2019-01-26] MEDS: ACETAMINOPHEN 325 MG TABLET 650 MG PO ×2 (11:30→22:47)
--- NOTE | 2019-01-26 12:15 | PC.NURSE ---
1120 pt reported headache starting but pain in left shoulder has resolved. notified dr dumas, order for tylenol and stop po nitro tabs.
--- NOTE | 2019-01-26 13:21 | P.HP_ITS ---
History of Present Illness Date Patient Seen: 01/26/19 Time Patient Seen: 13:11 Chief complaint: High blood pressure Narrative: 78-year-old female presented today to the ED with 24 hour history of left shoulder discomfort. Woke up with the pain. Describes pain as radiating from her left upper chest into her left shoulder with some heaviness down her arm. Pain has been constant without change. No associated dyspnea, dizziness, nausea, or vomiting. Her home blood pressures have been elevated. Vital signs upon admission to the ED included a pulse of 99, respiratory rate of 20, blood pressure 218/88, pulse ox 98%. 1 hour later, blood pressure was 150/89. Workup including CBC, liver enzymes cardiac enzymes, lipase, and UA significant for a negative troponin I. EKG showed normal sinus rhythm with ventricular rate of 72 beats per minute. No ST elevation or depression was noted. Chest x-ray showed decreased lung volumes with left greater than right mild bibasilar opacities, thought to represent atelectasis, no focal consolidation. Chronic medical history significant for hypertension, on losartan 50 mg p.o. q.day. She has not had outpatient echo or stress test. Also has hyperlipidemia, on atorvastatin 10 mg p.o. q.h.s. Family history of heart disease and hypertension in her father. Patient History Medical History (Updated 01/26/19 @ 13:40 by Jeanna Hinkle MD) Alopecia (Chronic) Colon polyps (Chronic) Dyslipidemia (Chronic) History of foot fracture (Chronic) Hypertension (Chronic) Osteoarthritis (Chronic) Osteopenia (Chronic) Overactive bladder (Chronic) Melanoma (Chronic) Surgical History (Updated 01/26/19 @ 13:40 by Jeanna Hinkle MD) H/O Achilles tendon repair (Acute) S/P foot surgery, right (Chronic) H/O melanoma excision (Chronic) Family History (Updated 01/26/19 @ 13:28 by Jeanna Hinkle MD) Father Hypertension Social History (Updated 01/26/19 @ 10:58 by Tatum Carey DO) marital status: household members: spouse Smoking Status: Never smoker alcohol intake: current substance use type: does not use Family & Social History Family History (Updated 01/26/19 @ 13:28 by Jeanna Hinkle MD) Father Hypertension Social History: household members spouse Safety & Behavioral: Feels Safe in Current Yes Environment Been Physically Hurt or No Threatened By a Person Tobacco & Substance use: Smoking Status Never smoker alcohol intake current alcohol intake frequency 0-2 drinks per day Substance Use Type does not use Meds Home Medications Medication Instructions Recorded Confirmed Type aspirin [Aspirin Low Dose] 81 mg PO QPM 12/15/18 01/26/19 History atorvastatin 10 mg PO QPM 12/15/18 01/26/19 History losartan 50 mg PO DAILY 01/26/19 01/26/19 History Allergies Allergy/AdvReac Type Severity Reaction Status Date / Time latex Allergy Intermediate Redness of Verified 12/15/18 08:21 Skin lisinopril Allergy Intermediate Rash Verified 12/15/18 08:21 codeine Allergy Mild Nausea Verified 12/15/18 08:21 Review of Systems Review of Systems All systems reviewed & are unremarkable except as noted in HPI and below Exam Vital Signs (past 8 hours): - 01/26/19 10:35 01/26/19 11:00 01/26/19 11:15 Pulse Rate 99 H 63 76 Respiratory Rate 20 16 Blood Pressure 218/88 H 160/121 H Blood Pressure [Right Arm] 160/121 H Pulse Oximetry 98 98 01/26/19 11:29 01/26/19 11:50 01/26/19 12:00 Pulse Rate 66 64 57 L Respiratory Rate 18 15 Blood Pressure 158/89 H Blood Pressure [Right Arm] 158/79 H 143/70 H Pulse Oximetry 98 100 01/26/19 12:30 Pulse Rate 66 Respiratory Rate 16 Blood Pressure Blood Pressure [Right Arm] 163/79 H Pulse Oximetry 100 Oxygen Delivery Method Room Air Narrative Exam Narrative: GENERAL: Alert and oriented, appearing stated age and in no acute distress. HEENT: Head normocephalic/atraumatic. Pupils equal, round, and reactive to light and accomodation. Extraocular muscles intact. Tympanic membranes clear. Nasal mucosa moist, septum midline. Oral mucosa moist, no lesions. Neck soft and supple, no lymphadenopathy. LUNGS: Clear to ausculation bilaterally, no wheezes, rhonchi or rales. CV: Normal S1 and S2 with regular rate and rhythm, no audible murmurs, rubs or gallops. ABDOMEN: Soft, non-tender, non-distended, no organomegaly. Positive bowel sounds. EXTREMITIES: No clubbing, cyanosis, or edema. NEURO: Cranial nerves II through XII grossly intact, no focal deficits. PSYCH: Alert and oriented x 3. SKIN: No concerning lesions. Objective Labs Result Diagrams: 01/26/19 10:50 01/26/19 10:50 Labs: Laboratory Results - last 24 hr 01/26/19 01/26/19 10:50 10:50 WBC 6.5 RBC 4.94 Hgb 14.8 Hct 45.2 MCV 91.5 MCH 30.0 MCHC 32.8 RDW 14.1 Plt Count 260 Neut % (Auto) 67.1 Lymph % (Auto) 21.4 L [place] % (Auto) 8.2 Eos % (Auto) 2.4 Baso % (Auto) 0.9 Neut # (Auto) 4300 Lymph # (Auto) 1400 [place] # (Auto) 500 Eos # (Auto) 200 Baso # (Auto) 100 Sodium 141 Potassium 3.6 Chloride 105 Carbon Dioxide 29 BUN 17 Creatinine 0.80 Estimated GFR > 60.0 BUN/Creatinine Ratio 21.3 Glucose 102 Calcium 9.3 Total Bilirubin 1.0 AST 25 ALT 24 Alkaline Phosphatase 85 Total Creatine Kinase 52 CK-MB (CK-2) TNP CK-MB (CK-2) Rel Index TNP Troponin I < 0.012 Total Protein 7.3 Albumin 4.3 Globulin 3.0 Albumin/Globulin Ratio 1.4 Lipase 79 Assessment & Plan Assessment & Plan narrative: 1. Rule out NC. Risk factors for acute coronary syndrome include hypertension, hyperlipidemia, and family history of heart disease. Will observe for 24 hours with serial cardiac enzymes. Patient has never had a cardiac echo or stress test, will get baseline studies to stratify risk. 2. Hypertension, uncontrolled. In the outpatient setting, patient has stage I hypertension, with a goal blood pressure less than 130/80. She is well c ontrolled, will continue home losartan 50 mg p.o. q.day and titrate if needed prior to discharge. 3. Hyperlipidemia, ASCVD risk score 24%, appropriately on atorvastatin 10 mg p.o. Q HS and aspirin 81 mg p.o. q.day, continue. 4. Chronic medical conditions including osteopenia, osteoarthritis, overactive bladder, colon polyps, and alopecia, stable. No treatment required as an inpatient. 5. Code: Full 6. DVT prophylaxis: Lovenox. Time Spent With Patient Time with patient: Greater than 35 minutes
--- NOTE | 2019-01-26 13:27 | PC.NURSE ---
Day shift: Pt on unit from ED at approx 1330. A&Ox3. Denies any chest pain. Oriented to room and call light.
[2019-01-26] MEDS: SODIUM CHLORIDE 0.9% 1,000 ML 125 ML IV ×2 (13:34→21:19)
[2019-01-26] MEDS: ENOXAPARIN 40 MG/0.4 ML SYRINGE SUBCUT (13:35)
[2019-01-26 16:18] LABS: Troponin I < 0.012 ng/mL (0.01-0.034)
[2019-01-26] MEDS: ATORVASTATIN 10 MG TABLET PO (17:18)
[2019-01-26] MEDS: ASPIRIN EC 81 MG TABLET PO (17:18)
[2019-01-26 21:49] LABS: Troponin I < 0.012 ng/mL (0.01-0.034)
[2019-01-27 00:39] VITALS: O2SAT 94
[2019-01-27 05:00] VITALS: BP 150/70; PULSE 79; RESP 15; TEMP 36.6; O2SAT 96
[2019-01-27] MEDS: SODIUM CHLORIDE 0.9% 1,000 ML 125 ML IV (05:23)
[2019-01-27 07:37] VITALS: O2SAT 97
[2019-01-27 07:43] VITALS: BP 152/72; PULSE 79; RESP 16; TEMP 36.3; O2SAT 95
--- NOTE | 2019-01-27 08:35 | P.DS_ITS ---
History of Present Illness Chief complaint: High blood pressure Narrative: 78-year-old female presented today to the ED with 24 hour history of left shoulder discomfort. Woke up with the pain. Describes pain as radiating from her left upper chest into her left shoulder with some heaviness down her arm. Pain has been constant without change. No associated dyspnea, dizziness, nausea, or vomiting. Her home blood pressures have been elevated. Vital signs upon admission to the ED included a pulse of 99, respiratory rate of 20, blood pressure 218/88, pulse ox 98%. 1 hour later, blood pressure was 150/89. Workup including CBC, liver enzymes cardiac enzymes, lipase, and UA significant for a negative troponin I. EKG showed normal sinus rhythm with ventricular rate of 72 beats per minute. No ST elevation or depression was noted. Chest x-ray showed decreased lung volumes with left greater than right mild bibasilar opacities, thought to represent atelectasis, no focal consolidation. Chronic medical history significant for hypertension, on losartan 50 mg p.o. q.day. She has not had outpatient echo or stress test. Also has hyperlipidemia, on atorvastatin 10 mg p.o. q.h.s. Family history of heart disease and hypertension in her father. Discharge Providers Date of admission: 01/26/19 12:13 Discharge Date: 01/27/19 Primary care physician: Jeanna Hinkle MD Consults: 01/26/19 13:08 Consult to Discharge Planning Routine Comment: Discharge provider: Jeanna Hinkle MD Summary Discharge Diagnosis: 1. Rule out NH. 2. Hypertension, uncontrolled. 3. Hyperlipidemia 4. Chronic medical conditions including osteopenia, osteoarthritis, overactive bladder, colon polyps, and alopecia Hospital Course: Unremarkable except for elevated blood pressures, patient is controlled at home, has white coat hypertension. Serial troponins x3 were negative. Echo showed a normal left ventricular thickness with an ejection fraction of 60-65%. There were no significant valvular abnormalities. Stress test low risk. Suspect pain was musculoskeletal. Plan for close outpatient follow-up. Patient advised to return promptly for worsening symptoms including chest pain, shortness of breath, pain radiating into her left arm/jaw, dizzine ss, or any other concerns. Time spent on discharge planning and care coordination: 30 minutes. Status at Discharge Cognitive/behavioral status at discharge: at baseline, oriented Functional status at discharge: independent ambulation Time Spent with Patient Greater than 30 minutes Exam Vital Signs (past 8 hours): - 01/27/19 00:39 01/27/19 05:00 01/27/19 07:37 Temperature 97.9 F Pulse Rate 79 Respiratory Rate 15 Blood Pressure 150/70 H Pulse Oximetry 94 96 97 01/27/19 07:43 Temperature 97.4 F L Pulse Rate 79 Respiratory Rate 16 Blood Pressure 152/72 H Pulse Oximetry 95 Oxygen Delivery Method Room Air Oxygen Flow Rate 0 Narrative Exam Narrative: GENERAL: Alert and oriented, appearing stated age and in no acute distress. HEENT: Head normocephalic/atraumatic. Pupils equal, round, and reactive to light and accomodation. Extraocular muscles intact. Tympanic membranes clear. Nasal mucosa moist, septum midline. Oral mucosa moist, no lesions. Neck soft and supple, no lymphadenopathy. LUNGS: Clear to ausculation bilaterally, no wheezes, rhonchi or rales. CV: Normal S1 and S2 with regular rate and rhythm, no audible murmurs, rubs or gallops. ABDOMEN: Soft, non-tender, non-distended, no organomegaly. Positive bowel sounds. EXTREMITIES: No clubbing, cyanosis, or edema. NEURO: Cranial nerves II through XII grossly intact, no focal deficits. PSYCH: Alert and oriented x 3. SKIN: No concerning lesions. Objective Labs Result Diagrams: 01/26/19 10:50 01/26/19 10:50 Labs: Laboratory Results - last 24 hr 01/26/19 01/26/19 01/26/19 10:50 10:50 15:30 WBC 6.5 RBC 4.94 Hgb 14.8 Hct 45.2 MCV 91.5 MCH 30.0 MCHC 32.8 RDW 14.1 Plt Count 260 Neut % (Auto) 67.1 Lymph % (Auto) 21.4 L [place] % (Auto) 8.2 Eos % (Auto) 2.4 Baso % (Auto) 0.9 Neut # (Auto) 4300 Lymph # (Auto) 1400 [place] # (Auto) 500 Eos # (Auto) 200 Baso # (Auto) 100 Sodium 141 Potassium 3.6 Chloride 105 Carbon Dioxide 29 BUN 17 Creatinine 0.80 Estimated GFR > 60.0 BUN/Creatinine Ratio 21.3 Glucose 102 Calcium 9.3 Total Bilirubin 1.0 AST 25 ALT 24 Alkaline Phosphatase 85 Total Creatine Kinase 52 CK-MB (CK-2) TNP CK-MB (CK-2) Rel Index TNP Troponin I < 0.012 < 0.012 Total Protein 7.3 Albumin 4.3 Globulin 3.0 Albumin/Globulin Ratio 1.4 Lipase 79 01/26/19 21:19 WBC RBC Hgb Hct MCV MCH MCHC RDW Plt Count Neut % (Auto) Lymph % (Auto) [place] % (Auto) Eos % (Auto) Baso % (Auto) Neut # (Auto) Lymph # (Auto) [place] # (Auto) Eos # (Auto) Baso # (Auto) Sodium Potassium Chloride Carbon Dioxide BUN Creatinine Estimated GFR BUN/Creatinine Ratio Glucose Calcium Total Bilirubin AST ALT Alkaline Phosphatase Total Creatine Kinase CK-MB (CK-2) CK-MB (CK-2) Rel Index Troponin I < 0.012 Total Protein Albumin Globulin Albumin/Globulin Ratio Lipase Discharge Plan Discharge Plan Patient Disposition: Home Discharge Med Rec/Prescriptions Prescriptions: Continued atorvastatin 10 mg Tablet 10 mg PO QPM RF: 0 aspirin [Aspirin Low Dose] 81 mg Tablet,Delayed Release (Dr/Ec) 81 mg PO QPM RF: 0 losartan 50 mg tablet 50 mg PO DAILY RF: 0 Follow up/Referrals: Jeanna Hinkle MD [Primary Care Provider] - Provider Discharge Instructions Diet: Diet as Tolerated Skin/Wound/Dressing Care Report to your healthcare provider any signs of infection, such as:: chills, fever, night sweats and increased pain Visit Report/Discharge Packet Instructions: DI for Heart Attack, Heart Attack in Women, Recommendations to Help Prevent High Blood Pressure, Heart Attack, Essential Hypertension Discharge Data Primary Care Provider: Jeanna Hinkle Attending Provider: Jeanna Hinkle Admit Date/Time: 01/26/19 12:13 Discharges patient from system. Discharge Date/Time: 01/27/19 14:36 Quality VTE Deep Vein Thrombosis/Pulmonary Embolism Present on Admission: No
[2019-01-27] MEDS: ENOXAPARIN 40 MG/0.4 ML SYRINGE SUBCUT (08:38)
[2019-01-27] MEDS: LOSARTAN 50 MG TABLET PO (08:38)
[2019-01-27 11:00] VITALS: BP 168/63; PULSE 68; RESP 17; TEMP 36.6; O2SAT 96
--- NOTE | 2019-01-27 13:09 | PC.NURSE ---
Day shift: Pt off unit for stress test at this time. Remain on tele. Test to start at 1330.
--- NOTE | 2019-01-27 13:40 | CM.DANOTE ---
Addendum entered by Danuta Siu LPN 01/27/19 13:57: Met now with pt's son Yony, here visiting his mother and now waiting for the results of the stress test. He confirms that his mother is functionally independent in the community without need for assistive device. She lives with her spouse who is also in good health. She drives. P: at this point likely home later today with clinic followup unless stress test results dictate otherwise. Original Note: Discharge Planning/Care Management DCP: assessment: Case received, EMR reviewed. Discussed in Team Rounds. Went to room now to see pt but she is off the unit for a stress test. ROSE Chakraborty states that plan if for pt to d/c home later today IF the stress test results indicate this as a safe plan. White Board in her room is updated with DCP contact information. Pt is a 78 year old female who admitted yesterday afternoon to care of PCP: Dr. Jeanna Hinkle. She also saw him today and her d/c order/already in place, is dependent on stress test result. Payer: Medicare and [facility] Admission status: INPT: confirmed by UR ROSE Serra. P: follow prn for any needs. If pt is still here tomorrow dcplanning team will check in with her. Advanced directive, confirm from FAMILY Start: 01/26/19 13:58 Freq: Q24H Status: Active Protocol: Document 01/26/19 14:00 CM (Rec: 01/26/19 14:00 CM [id number]) Advance Directive, confirm on record Time 14:00 Person contacted Patient - Family Copy received No CM Discharge Assessment Start: 01/27/19 13:39 Freq: Status: Active Protocol: Document 01/27/19 13:39 ITV (Rec: 01/27/19 13:40 ITV [id number]) Discharge Planning Assessment Advance Directives? Yes Advance Directives on File Yes: Copy with [facility] History Provided By Patient Medical Record Prior Living Arrangements House Household Members spouse Is patient alert and oriented? Yes Whiteboard Updated in Patient Room with Yes name and ext. # of Garage Door Opener Installer Review Status In Process
--- NOTE | 2019-01-27 13:57 | P.PCN_ITS ---
Cardiac Stress Test Report Referral & Results Date Patient Seen: 01/27/19 Time Patient Seen: 13:55 Requesting provider: Jeanna Hinkle Indication: Chest discomfort Rest ECG: Unremarkable Procedure Note: Today following both written and verbal informed consent, the patient was exercised according to a standard Edwin protocol. The patient exerc ised for a total of 4 minutes 3 seconds achieving a maximum heart rate of 149. Patient's maximum systolic blood pressure was 210. This was an estimated 7.0 MET's. Patient did experience 3+ dyspnea with activity by her report although she continued to be able to speak throughout the entirety of the treadmill test There are no ST-T segment changes identified Normal heart rate and blood pressure response to exercise Functional aerobic impairment rated about 0 on the sedentary scale Impression: No evidence of ischemia Average exercise capacity Reported dyspnea out of proportion to objective findings as above Please note: Actual ECG tracings can be found in the PACS system.
--- NOTE | 2019-01-27 14:00 | PC.NURSE ---
Day sift: Pt back on unit at approx 1350.
--- NOTE | 2019-01-27 14:35 | PC.NURSE ---
Day shift: Pt left unit at approx 1430 via WC with [employer]PECTOR to private car driven by spouse. Stress test went well and results read to MD over phone. Paperwork signed. Pt has all personal belongings. No new MD scrips. F/U appointment made and on Pt's paperwork.
--- NOTE | 2019-02-22 10:04 | PC.NURSE ---
NS 0.9% 1000ml. infused a total of 260ml iv, completed at 1310
== END 2019-01-27 14:36 | disposition home or self-care (01) ==
LOC: ED 11:59 → AC 12:15
PROVIDERS: Admitting Provider Student in an Organized Health Care Education/Training Program; Emergency Provider Emergency Medicine; PCP Student in an Organized Health Care Education/Training Program; Visit Provider Student in an Organized Health Care Education/Training Program
DX: R07.9 Chest pain, unspecified (principal); I10 Essential (primary) hypertension; E78.5 Hyperlipidemia, unspecified
CPT/HCPCS: 36415; 36591; 71045; 80053; 81003; 82550; 83690; 84484; 85025; 93005; 93016; 93017; 93018; 93041; 93306; 94762; 96360; 96361; 96372; 99285; G0378; J1650

== ENCOUNTER → 2019-03-16 11:23 | Outpatient (CLI) | payer MEDICARE, OTHER, SELFPAY ==
[2019-01-26 13:42] VITALS: BMI 25.4
--- NOTE | 2019-03-16 | DI.MG.S_ITS ---
BILATERAL DIGITAL SCREENING MAMMOGRAM 3D/2D WITH CAD: 03/16/2019 CLINICAL: Routine screening. Family history of breast cancer. Comparison is made to exams dated: 03/09/2018 mammogram, 03/02/2017 mammogram, and 02/04/2016 mammogram - [facility]. There are scattered fibroglandular elements in both breasts. Current study was also evaluated with a Computer Aided Detection (CAD) system. No significant masses, calcifications, or other findings are seen in either breast. There has been no significant interval change. IMPRESSION: NEGATIVE There is no mammographic evidence of malignancy. A 1 year screening mammogram is recommended. This exam was interpreted at Station ID: [id number]. NOTE: For mammograms, a report in lay terms will be sent to the patient. Approximately 15% of breast malignancies will not be visualized mammographically. In the management of a palpable breast mass, a negative mammogram must not discourage biopsy of a clinically suspicious lesion. Electronically Signed By: Shiva chowdhury/rina:03/16/2019 12:30:49 letter sent: Normal Exam ACR BI-RADS Category 1: Negative 3341F
== END ==
PROVIDERS: PCP Student in an Organized Health Care Education/Training Program; Visit Provider Student in an Organized Health Care Education/Training Program
DX: Z12.31 Encounter for screening mammogram for malignant neoplasm of breast (principal); Z80.3 Family history of malignant neoplasm of breast
CPT/HCPCS: 77063; 77067

== ENCOUNTER → 2020-05-07 16:36 | Outpatient (CLI) | payer MEDICARE, OTHER, SELFPAY ==
[2019-01-26 13:42] VITALS: BMI 25.4
--- NOTE | 2020-05-07 16:40 | DI.MG.S_ITS ---
BILATERAL DIGITAL SCREENING MAMMOGRAM 3D/2D WITH CAD: 05/07/2020 CLINICAL: Routine screening. Family history of breast cancer. Comparison is made to exams dated: 03/16/2019 mammogram, 03/09/2018 mammogram, and 03/02/2017 mammogram - [facility]. There are scattered fibroglandular elements in both breasts. Current study was also evaluated with a Computer Aided Detection (CAD) system. There is a benign calcification in both breasts. No significant masses, calcifications, or other findings are seen in either breast. There has been no significant interval change. IMPRESSION: BENIGN There is no mammographic evidence of malignancy. A 1 year screening mammogram is recommended. This exam was interpreted at Station ID: [id number]. NOTE: For mammograms, a report in lay terms will be sent to the patient. Approximately 15% of breast malignancies will not be visualized mammographically. In the management of a palpable breast mass, a negative mammogram must not discourage biopsy of a clinically suspicious lesion. Electronically Signed By: Yusuf Lebron acr/rina:05/07/2020 17:24:58 letter sent: Normal Exam ACR BI-RADS Category 2: Benign Finding(s) 3342F
== END ==
PROVIDERS: PCP Student in an Organized Health Care Education/Training Program; Referring Provider Obstetrics & Gynecology; Visit Provider Obstetrics & Gynecology
DX: Z12.31 Encounter for screening mammogram for malignant neoplasm of breast (principal); Z80.3 Family history of malignant neoplasm of breast
CPT/HCPCS: 77063; 77067

== ENCOUNTER → 2020-11-19 10:02 | Outpatient (CLI) | payer MEDICARE, OTHER, SELFPAY ==
[2019-01-26 13:42] VITALS: BMI 25.4
== END ==
PROVIDERS: PCP Student in an Organized Health Care Education/Training Program; Referring Provider Student in an Organized Health Care Education/Training Program; Visit Provider Student in an Organized Health Care Education/Training Program
DX: M85.852 Other specified disorders of bone density and structure, left thigh (principal); Z78.0 Asymptomatic menopausal state
CPT/HCPCS: 77080

== ENCOUNTER 2021-03-07 13:56 | Emergency (ER) | payer MEDICARE, OTHER, SELFPAY ==
[2019-01-26 13:42] VITALS: BMI 25.4
[2021-03-07] VITALS (14 sets, daily range): BP systolic 108–149; BP diastolic 56–110; PULSE 59–81; RESP 12–31; TEMP 36.6; O2SAT 94–98; BMI 24.3
--- NOTE | 2021-03-07 15:15 | PC.NURSE ---
pt states this morning had elevated BP. Took her regular home meds and had some dizziness and was diaphoretic directly after. Pt states symptoms resolved only with slight lightheadedness at this time. denies syncope or difficulty ambulating
--- NOTE | 2021-03-07 16:24 | ED_ITS ---
HPI - Dizziness General Chief Complaint: Dizziness Stated Complaint: Lower BP W/Symptoms Time Seen by Provider: 03/07/21 16:08 Source: patient and family Mode of arrival: Wheelchair Limitations: no limitations History of Present Illness HPI Narrative: This is a 80-year-old female who comes emergency department with complaint of low BP. Patient states that she was told to take and terazosin if her blood pressure was greater than 140 systolic. She normally takes her Toprol in the morning and she took this. She normally takes her Toprol twice daily. Patient states about 1/2 hour after taking medications she started to feel very lightheaded, sweaty and nauseated. She denies any symptoms currently. She is f eeling much better now. She checked her blood pressure several times at at times got pressures in the 70s and even 110s. Patient denies any chest pain, no shortness of breath. No vomiting. No new swelling in her extremities. She does not take any other daily medications. She really takes her medications for hypertension. Terazosin she takes very infrequently and was prescribed for as needed hypertension her last dose was several weeks ago. She does not normally take them together. She is allergic to lisinopril, codeine and possibly latex. No tobacco, 1-2 alcoholic drinks daily. No illicit. Dr. Hinkle is her pcp. Related Data Home Medications Medication Instructions Recorded Confirmed aspirin 81 mg tablet,delayed 81 mg PO QPM 12/15/18 08/11/19 release (Aspirin Low Dose) atorvastatin 10 mg tablet 10 mg PO QPM 12/15/18 08/11/19 losartan 50 mg tablet 50 mg PO DAILY 01/26/19 08/11/19 Previous Rx's Medication Instructions Recorded cyclobenzaprine 5 mg tablet 5 mg PO BEDTIME #20 tab 08/11/19 Allergies Allergy/AdvReac Type Severity Reaction Status Date / Time latex Allergy Intermediate Redness of Verified 08/11/19 15:22 Skin lisinopril Allergy Intermediate Rash Verified 08/11/19 15:22 codeine Allergy Mild Nausea Verified 08/11/19 15:22 Review of Systems Review of Systems ROS Unobtainable: All systems reviewed & are unremarkable except as noted in HPI and below Patient History Medical History (Updated 03/07/21 @ 16:43 by Tatum Carey DO) Alopecia Colon polyps Dyslipidemia History of foot fracture Hypertension Melanoma Osteoarthritis Osteopenia Overactive bladder Surgical History H/O Achilles tendon repair H/O melanoma excision S/P foot surgery, right Family History Father Hypertension Social History marital status: household members: spouse Smoking Status: Never smoker alcohol intake: current substance use type: does not use Smoking Status: Never smoker alcohol intake frequency: 0-2 drinks per day Alcohol type: wine Substance Use Type: does not use Exam Narrative Exam Narrative: GENERAL: Alert and oriented x three, elderly in mild distress. HEENT: Head normocephalic, atraumatic, EOMI, pupils reactive, face symmetric, moist mucous membranes NECK: Supple, full range of motion CARDIOVASCULAR: Regular rate and rhythm without murmurs, rubs or gallops. RESPIRATORY: Breath sounds equal bilaterally, no wheezes rales or rhonchi. ABDOMEN: Soft, nontender. Normoactive bowel sounds all 4 quadrants. No guarding or rebound, rigidity, no mass : No CVA tenderness EXTREMITIES: Normal range of motion, no clubbing or edema. Neurovascularly intact NEUROLOGICAL: Cranial nerves II through XII grossly intact. Moving all extremities SKIN: Warm, dry, no petechiae, no rashes or lesions. Initial Vital Signs Initial Vital Signs: Vital Signs Temperature 98 F 03/07/21 14:01 Pulse Rate 74 03/07/21 14:01 Respiratory Rate 16 03/07/21 14:01 Blood Pressure 140/65 03/07/21 14:01 Pulse Oximetry 95 03/07/21 14:01 Course Orders Ordered: ED Orders 03/07/21 14:33 EKG-12 Lead Stat 03/07/21 16:34 XR chest 1V Stat 03/07/21 17:32 Complete Blood Count AUTO DIFF Stat Comprehensive Metabolic Panel Stat Lipase Stat Troponin & CK Cardiac Panel Stat Vital Signs Vital signs: Vital Signs - 8 hr 03/07/21 14:01 03/07/21 14:28 03/07/21 14:29 Temperature 98 F Pulse Rate 74 72 70 Respiratory Rate 16 23 12 Blood Pressure 140/65 149/67 H Pulse Oximetry 95 96 95 03/07/21 14:30 03/07/21 15:00 03/07/21 15:30 Temperature Pulse Rate 70 64 61 Respiratory Rate 15 22 17 Blood Pressure 113/56 L 108/57 L 125/58 L Pulse Oximetry 94 96 96 03/07/21 16:00 03/07/21 16:30 03/07/21 16:31 Temperature Pulse Rate 59 L 81 71 Respiratory Rate 16 31 H 25 H Blood Pressure 118/60 140/110 H Pulse Oximetry 94 97 97 03/07/21 17:00 03/07/21 17:40 03/07/21 18:00 Temperature Pulse Rate 62 67 62 Respiratory Rate 17 20 15 Blood Pressure 134/65 Pulse Oximetry 96 98 03/07/21 18:19 03/07/21 18:30 Temperature Pulse Rate 64 63 Respiratory Rate 24 22 Blood Pressure 144/71 H 139/71 Pulse Oximetry 97 97 MDM - Dizziness Lab Data Result diagrams: 03/07/21 17:32 03/07/21 17:32 Labs: Lab Results 03/07/21 03/07/21 Range/Units 17:32 17:32 WBC 8.0 (4.5-11.0) X10^3/uL RBC 4.77 (4.0-5.2) X10^6/uL Hgb 14.1 (12.0-16.0) g/dL Hct 42.6 (36-46) % MCV 89.3 (80-100) fL MCH 29.7 (26-34) PG MCHC 33.2 (30-36) % RDW 14.0 (11.6-14.8) % Plt Count 243 (150-400) X10^3/uL Neut % (Auto) 80.4 H (50-75) % Lymph % (Auto) 12.7 L (25-40) % [place] % (Auto) 5.7 (3-14) % Eos % (Auto) 0.5 L (2-4) % Baso % (Auto) 0.7 (0-2) % Neut # (Auto) 6400 (8301-1656) /uL Lymph # (Auto) 1000 L (1840-3013) /uL [place] # (Auto) 500 (0-900) /uL Eos # (Auto) 0 (0-450) /uL Baso # (Auto) 100 (0-100) /uL Sodium 141 (137-145) mmol/L Potassium 3.8 (3.4-5.1) mmol/L Chloride 107 (98-107) mmol/L Carbon Dioxide 30 (22-32) mmol/L BUN 18 H (7-17) mg/dL Creatinine 0.76 (0.52-1.04) mg/dL Estimated GFR > 60.0 (>60) mL/min BUN/Creatinine Ratio 23.7 H (6-22) Glucose 93 (80-110) mg/dL Calcium 9.2 (8.4-10.2) mg/dL Total Bilirubin 0.7 (0.2-1.3) mg/dL AST 26 (14-36) IU/L ALT 26 (<35) IU/L Alkaline Phosphatase 81 (38-126) U/L Total Creatine Kinase 40 (30-135) U/L CK-MB (CK-2) TNP CK-MB (CK-2) Rel Index TNP Troponin I < 0.012 (0.01-0.034) ng/mL Total Protein 6.8 (6.3-8.2) g/dL Albumin 4.0 (3.5-5.0) g/dL Globulin 2.8 (1.7-4.1) g/dL Albumin/Globulin Ratio 1.4 (1.0-2.8) Lipase 102 (23-300) U/L Imaging Data Chest x-ray: Radiologist's Impression: [address] [id number] ReportSigned Patient: Kami Gonzales LMR#: [id number]: 3Acct:[id number]/Sex: 80 / FDate of Service: 03/07/21Loc: EDAccession Number: [id number] Procedure: XR chest 1V Ordering Provider: Tatum Carey D.O. PROCEDURE: XR CHEST 1V INDICATIONS: low bp, lightheaded. TECHNIQUE: One view of the chest was acquired. COMPARISON: [facility], XR CHEST 1V, 01/26/2019, 10:58. FINDINGS: Surgical changes and devices: None. Lungs and pleura: There is unchanged blunting of the costophrenic angles bilaterally. Minimal appearance of increased vascularity. Mediastinum: Mediastinal contours appear normal. Heart size is normal. Bones and chest wall: No suspicious bony lesions. Overlying soft tissues appear unremarkable. IMPRESSION: Unchanged costophrenic angle blunting likely related to scarring versus trace effusions. Minimal increased vascularity suggestive of edema. Dictated by: Clary Dyer M.D. on 03/07/2021 at 16:52 Approved by: Clary Dyer M.D. on 03/07/2021 at 16:52 ECG Data Attestation: I personally reviewed and interpreted this ECG as follows: Interpretation: Sinus rhythm rate of 67 [place] 158 QRS of 94 and QTC 448. No acute ST changes appreciated. Patient has prior from 01/26/2019 which appears similar. MDM Narrative Medical decision making narrative: This is a 80-year-old female comes in with complaint of dizziness, nausea and diaphoresis after taking her terazosin and Toprol in conjunction for hypertension. Patient does not normally take terazosin with her on Toprol. I suspect patient had symptomatic hypotension which has been improving. She has not been ambulating department but feels much better even sitting up. Patient took the medication around 10 30 this morning this was likely starting to be less effective. Discharge Plan Departure Patient Disposition: Home Clinical Impression: Symptomatic hypotension Activity Restrictions/Additional Instructions: I suspect that your low blood pressure with secondary taking terazosin and Toprol closely together. I would recommend not taking these at the same time. Discussed with your physician about what our best possible choices for feature elevated blood pressures. I do think that it would be appropriate to take your regular Toprol blood pressure medication this evening. Please return for new or worsening symptoms, recurrent lightheadedness, passing out, sore headaches, chest pain, shortness of breath, persistent vomiting, diaphoresis, swelling in her extremities or other new or concerning symptoms. Prescriptions: No Action cyclobenzaprine 5 mg tablet 5 mg PO BEDTIME Qty: 20 RF: 0 atorvastatin 10 mg Tablet 10 mg PO QPM RF: 0 aspirin [Aspirin Low Dose] 81 mg Tablet,Delayed Release (Dr/Ec) 81 mg PO QPM RF: 0 losartan 50 mg tablet 50 mg PO DAILY RF: 0 Referrals: Jeanna Hinkle MD [Primary Care Provider] -
--- NOTE | 2021-03-07 16:34 | DI.RAD.S_ITS ---
PROCEDURE: XR CHEST 1V INDICATIONS: low bp, lightheaded. TECHNIQUE: One view of the chest was acquired. COMPARISON: [facility], CR, XR CHEST 1V, 01/26/2019, 10:58. FINDINGS: Surgical changes and devices: None. Lungs and pleura: There is unchanged blunting of the costophrenic angles bilaterally. Minimal appearance of increased vascularity. Mediastinum: Mediastinal contours appear normal. Heart size is normal. Bones and chest wall: No suspicious bony lesions. Overlying soft tissues appear unremarkable. IMPRESSION: Unchanged costophrenic angle blunting likely related to scarring versus trace effusions. Minimal increased vascularity suggestive of edema. Dictated by: Clary Dyer M.D. on 03/07/2021 at 16:52 Approved by: Clary Dyer M.D. on 03/07/2021 at 16:52
[2021-03-07 17:48] LABS: Add Manual Diff / Slide Review NO; Basophils Absolute Auto 100 /uL (0-100); Basophils Percent Auto 0.7 % (0-2); Eosinophils Absolute Auto 0 /uL (0-450); Eosinophils Percent Auto 0.5 % (2-4); Hematocrit 42.6 % (36-46); Hemoglobin 14.1 g/dL (12.0-16.0); Lymphocytes Absolute Auto 1000 /uL (1100-4500); Lymphocytes Percent Auto 12.7 % (25-40); Mean Corpuscular HGB Conc 33.2 % (30-36); Mean Corpuscular Hemoglobin 29.7 PG (26-34); Mean Corpuscular Volume 89.3 fL (80-100); Monocytes Absolute Auto 500 /uL (0-900); Monocytes Percent Auto 5.7 % (3-14); Neutrophils Absolute Auto 6400 /uL (1500-7000); Neutrophils Percent Auto 80.4 % (50-75); Platelet Count 243 X10^3/uL (150-400); Red Blood Cell Count 4.77 X10^6/uL (4.0-5.2)
[2021-03-07 17:52] LABS: Alanine Aminotransferase 26 IU/L (<35); Albumin Globulin Ratio 1.4 (1.0-2.8); Alkaline Phosphatase 81 U/L (38-126); Aspartate Aminotransferase 26 IU/L (14-36); BUN Creatinine Ratio 23.7 (6-22); Bilirubin Total 0.7 mg/dL (0.2-1.3); Blood Urea Nitrogen 18 mg/dL (7-17); Calcium 9.2 mg/dL (8.4-10.2); Carbon Dioxide 30 mmol/L (22-32); Chloride 107 mmol/L (98-107); Creatine Kinase 40 U/L (30-135); Estimated Glomerular Filt Rate > 60.0 mL/min (>60); Globulin 2.8 g/dL (1.7-4.1); Glucose 93 mg/dL (80-110); HEMOLYSIS < 15 (0-50); Lipase 102 U/L (23-300); Potassium 3.8 mmol/L (3.4-5.1); Sodium 141 mmol/L (137-145); Total Protein 6.8 g/dL (6.3-8.2)
[2021-03-07 18:03] LABS: Troponin I < 0.012 ng/mL (0.01-0.034)
== END 2021-03-07 18:51 | disposition home or self-care (01) ==
PROVIDERS: Emergency Provider Emergency Medicine; PCP Student in an Organized Health Care Education/Training Program
DX: I95.89 Other hypotension (principal); R11.0 Nausea; R42 Dizziness and giddiness
CPT/HCPCS: 36415; 71045; 80053; 82550; 83690; 84484; 85025; 93005; 93010; 99283; 99284

== ENCOUNTER → 2021-06-19 09:58 | Outpatient (CLI) | payer MEDICARE, OTHER, SELFPAY ==
[2019-01-26 13:42] VITALS: BMI 25.4
--- NOTE | 2021-06-19 | DI.MG.S_ITS ---
BILATERAL DIGITAL SCREENING MAMMOGRAM 3D/2D WITH CAD: 06/19/2021 CLINICAL: Routine screening. Family history of breast cancer. Comparison is made to exams dated: 05/07/2020 mammogram, 03/16/2019 mammogram, and 03/09/2018 mammogram - [facility]. There are scattered fibroglandular elements in both breasts. Current study was also evaluated with a Computer Aided Detection (CAD) system. There is an oval high density focal asymmetry with a spiculated margin in the right breast at 7 o'clock posterior depth. This is increased in size. No other significant masses, calcifications, or other findings are seen in either breast. IMPRESSION: INCOMPLETE: NEEDS ADDITIONAL IMAGING EVALUATION The oval high density focal asymmetry in the right breast is indeterminate. A diagnostic mammogram and ultrasound is recommended. This exam was interpreted at Station ID: [id number]. NOTE: For mammograms, a report in lay terms will be sent to the patient. Approximately 15% of breast malignancies will not be visualized mammographically. In the management of a palpable breast mass, a negative mammogram must not discourage biopsy of a clinically suspicious lesion. Electronically Signed By: Kaci prado/:06/19/2021 11:43:28 letter sent: Additional Imaging Needed ACR BI-RADS Category 0: Incomplete 3340F
== END ==
PROVIDERS: PCP Student in an Organized Health Care Education/Training Program; Referring Provider Student in an Organized Health Care Education/Training Program; Visit Provider Student in an Organized Health Care Education/Training Program
DX: Z12.31 Encounter for screening mammogram for malignant neoplasm of breast (principal); Z80.3 Family history of malignant neoplasm of breast
CPT/HCPCS: 77063; 77067

== ENCOUNTER → 2021-07-18 12:33 | Outpatient (CLI) | payer MEDICARE, OTHER, SELFPAY ==
[2019-01-26 13:42] VITALS: BMI 25.4
--- NOTE | 2021-07-18 12:35 | DI.MG.S_ITS ---
UNILATERAL RIGHT DIGITAL DIAGNOSTIC MAMMOGRAM 3D/2D WITH ADDITIONAL VIEWS: 07/18/2021 CLINICAL: Additional evaluation requested from prior study. Comparison is made to exams dated: 06/19/2021 mammogram, 05/07/2020 mammogram, and 03/16/2019 mammogram - [facility]. There are scattered fibroglandular elements in right breast. The oval high density focal asymmetry in the right breast at 7 o'clock posterior depth is no longer seen. This is not seen in additional views. No other significant masses or calcifications are seen in the breast. IMPRESSION: BENIGN There is no mammographic evidence of malignancy. Return to annual mammogram screening schedule is recommended. This exam was interpreted at Station ID: [id number]. NOTE: For mammograms, a report in lay terms will be sent to the patient. Approximately 15% of breast malignancies will not be visualized mammographically. In the management of a palpable breast mass, a negative mammogram must not discourage biopsy of a clinically suspicious lesion. Electronically Signed By: Yusuf Lebron acr/:07/18/2021 13:01:50 letter sent: Normal Exam ACR BI-RADS Category 2: Benign Finding(s) 3342F
== END ==
PROVIDERS: PCP Student in an Organized Health Care Education/Training Program; Referring Provider Student in an Organized Health Care Education/Training Program; Visit Provider Student in an Organized Health Care Education/Training Program
DX: R92.8 Other abnormal and inconclusive findings on diagnostic imaging of breast (principal)
CPT/HCPCS: 77065; G0279

== ENCOUNTER → 2022-02-11 12:06 | Outpatient (CLI) | payer MEDICARE, OTHER, SELFPAY ==
[2019-01-26 13:42] VITALS: BMI 25.4
--- NOTE | 2022-02-11 | DI.RAD.S_ITS ---
PROCEDURE: XR CHEST 2V INDICATIONS: hypertension TECHNIQUE: 2 views of the chest were acquired. COMPARISON: [facility], CR, XR CHEST 1V, 01/26/2019, 10:58. [facility], CR, XR CHEST 1V, 03/07/2021, 16:35. FINDINGS: Surgical changes and devices: None. Lungs and pleura: Lungs are clear. No pleural effusions or pneumothorax. Mediastinum: Mediastinal contours are normal. Heart size is normal. Atherosclerotic calcification of the aortic arch is noted. Bones and chest wall: No suspicious bony abnormalities. Age-appropriate bony degenerative changes are seen. Accentuated thoracic kyphosis is seen. Soft tissues appear unremarkable. IMPRESSION: Plain film study within normal limits for age. Dictated by: Uche Carrion M.D. on 02/11/2022 at 13:10 Approved by: Uche Carrion M.D. on 02/11/2022 at 13:11
== END ==
PROVIDERS: PCP Family Medicine; Referring Provider Family Medicine; Visit Provider Internal Medicine
DX: I10 Essential (primary) hypertension (principal)
CPT/HCPCS: 71046

== ENCOUNTER → 2022-04-15 08:01 | Outpatient (CLI) | payer MEDICARE, OTHER, SELFPAY ==
[2019-01-26 13:42] VITALS: BMI 25.4
--- NOTE | 2022-04-15 08:04 | DI.ECHO.S_ITS ---
[place] [facility]---------+ [facility] +---------+ : : [address] : : : : [id number] : : : : Phone: [phone]+ Echocardiogram Report + + :Name: LUCÍA ABURTO Study Date: 04/15/2022 Height: 68 in : :[facility] ReadingLocation: Weight: 170 lb : : Gender: Female BSA: 1.9 m2 : :: 1940 Age: 81 yrs BP: 151/89 mmHg: :Reason For Study: HYPERTENSION : :Ordering Physician: SID, : :SOFÍA Performed By: Gita Nathan : :Referring: SOFÍA LAU : + + Interpretation Summary 1) Mildly increased left ventricular thickness (concentric) with normal size, normal wall motion, and normal systolic function (EF 60-65%). 2) Normal right ventricular size and function. 3) There is mild to moderate mitral regurgitation. 4) Compared to the Echo done 01/26/2019, mild-moderate mitral regurgitation is present on this study. Procedure: A two-dimensional transthoracic echocardiogram with color flow and Doppler was performed. The study quality was technically adequate. Comparison is made with the echocardiogram of 01/26/2019. The patient was in sinus rhythm with heart rates between 58-70 bpm during the exam. Left Ventricle: The left ventricle is normal in size. There is mild concentric left ventricular hypertrophy. The ejection fraction is estimated to be 60-65%. Left ventricular systolic function appears normal without focal wall motion abnormalities. Diastolic parameters suggest a pseudonormalization pattern, consistent with probable elevated filling pressures. Right Ventricle: The right ventricle is normal in size and function. Atria: The left atrium is moderately dilated. Right atrial size is normal. There is no Doppler evidence for an interatrial shunt. Mitral Valve: The mitral valve is normal in structure and function. There is mild mitral annular calcification. There is mild to moderate mitral regurgitation. Aortic Valve: The aortic valve is trileaflet. The aortic valve opens well. There is no aortic valve stenosis. There is trace aortic regurgitation. Tricuspid Valve: The tricuspid valve is normal in structure and function. There is mild tricuspid regurgitation. The right ventricular systolic pressure is estimated to be at least 29 mmHg based on an estimated right atrial pressure of 3 mm Hg. Pulmonic Valve: The pulmonic valve leaflets are thin and pliable; valve motion is normal. There is trace pulmonic regurgitation. Great Vessels: The aortic root is normal size. The dimensions of the ascending aorta are normal. The IVC is of normal diameter and collapses greater than 50% with a sniff. This suggests a low right atrial pressure of 3 mm Hg. Pericardium/ Pleura There is no pericardial effusion. There is no pleural effusion. MMode/2D Measurements & Calculations LVIDd: 4.7 cm LVOT diam: 2.0 cm LVIDs: 2.9 cm Ao root diam: 2.6 cm FS: 37.1 % asc Aorta Diam: 3.5 cm IVSd: 1.1 cm Ao Arch Diam (Prox Trans): 3.1 cm LVPWd: 1.0 cm LV forbes. diameter/BSA (cm/m^2): 2.5 LV sys. diameter/BSA (cm/m^2): 1.5 LA A2 area: 23.7 cm2 RA long axis: 5.2 cm LA A4 area: 18.4 cm2 RA area: 14.7 cm2 LA length (vol): 5.7 cm RA vol: 35.0 ml LA vol: 64.6 ml RA : 18.4 ml/m2 LA vol index: 33.9 ml/m2 IVC diam: 1.2 cm RVD1 (basal): 3.4 cm RVD2 (mid): 2.9 cm TAPSE: 2.1 cm Doppler Measurements & Calculations Ao V2 max: 145.6 cm/sec LVOT Max Bg: 116.0 cm/sec Ao V2 mean: 96.9 cm/sec LV V1 max P.4 mmHg Ao max P.5 mmHg LV V1 VTI: 30.7 cm Ao mean P.3 mmHg TASIA(I,D): 2.8 cm2 Ao V2 VTI: 35.8 cm TASIA(V,D): 2.6 cm2 sev ratio: 0.86 TASIA indexed to BSA (cm^2/m^2): 1.5 MV E max bg: 90.9 cm/sec TR max bg: 255.2 cm/sec MV A max bg: 71.6 cm/sec TR max P.0 mmHg MV E/A: 1.3 PA V2 max: 81.9 cm/sec Med Peak E' Bg: 6.2 cm/sec PA V2 mean: 54.6 cm/sec E/E' med: 14.6 PA mean P.4 mmHg Lat Peak E' Bg: 6.6 cm/sec PA pr(Accel): 5.4 mmHg E/E' lat: 13.8 E/e' average: 14.2 MV dec time: 0.20 sec SV(OT): 100.4 ml Reading Physician:10:55 AM
== END ==
PROVIDERS: PCP Family Medicine; Referring Provider Internal Medicine; Visit Provider Internal Medicine
DX: I10 Essential (primary) hypertension (principal); I34.0 Nonrheumatic mitral (valve) insufficiency
CPT/HCPCS: 93306

== ENCOUNTER → 2022-08-19 11:27 | Outpatient (CLI) | payer MEDICARE, OTHER, SELFPAY ==
[2019-01-26 13:42] VITALS: BMI 25.4
--- NOTE | 2022-08-19 | DI.MG.S_ITS ---
BILATERAL DIGITAL SCREENING MAMMOGRAM 3D/2D WITH CAD: 08/19/2022 CLINICAL: Routine screening. Family history of breast cancer. Comparison is made to exams dated: 07/18/2021 mammogram, 06/19/2021 mammogram, 05/07/2020 mammogram, and 03/16/2019 mammogram - [facility]. There are scattered areas of fibroglandular density in both breasts (category b / 25%-50% glandular tissue). Current study was also evaluated with a Computer Aided Detection (CAD) system. No significant masses, calcifications, or other findings are seen in either breast. There has been no significant interval change. IMPRESSION: NEGATIVE There is no mammographic evidence of malignancy. A 1 year screening mammogram is recommended. Based on the Tyrer Cuzick model (a risk assessment model) the patient's lifetime risk is 2.9% and her 10 year risk is 0.0%. According to the ACR, ACS, and NCCN guidelines, an annual breast MRI exam along with mammogram is recommended if the patient's lifetime risk is 20% or greater. This exam was interpreted at Station ID: [id number]. NOTE: For mammograms, a report in lay terms will be sent to the patient. Approximately 15% of breast malignancies will not be visualized mammographically. In the management of a palpable breast mass, a negative mammogram must not discourage biopsy of a clinically suspicious lesion. Electronically Signed By: Yusuf hernandez/rina:08/19/2022 12:11:02 letter sent: Normal Exam ACR BI-RADS Category 1: Negative 3341F
== END ==
PROVIDERS: PCP Family Medicine; Referring Provider Family Medicine; Visit Provider Family Medicine
DX: Z12.31 Encounter for screening mammogram for malignant neoplasm of breast (principal); Z80.3 Family history of malignant neoplasm of breast
CPT/HCPCS: 77063; 77067

== ENCOUNTER → 2022-10-15 09:07 | Outpatient (CLI) | payer MEDICARE, OTHER, SELFPAY ==
[2019-01-26 13:42] VITALS: BMI 25.4
--- NOTE | 2022-10-16 00:30 | DI.NM.S_ITS ---
DATE OF SERVICE: 10/15/2022 PROCEDURE PERFORMED: Pharmacologic stress and rest myocardial perfusion imaging with gating to assess ejection fraction and regional wall motion. ORDERING PROVIDER: Bonnie Rogers M.D. INDICATIONS: The patient is a 81-year-old female with hypertension and exertional dyspnea. CARDIAC STRESS: Per protocol, 0.4 mg of regadenoson was infused, augmented by walking. She had a normal heart rate and blood pressure response, achieving a maximum heart rate of 129 BPM (91% of her predicted maximum). She had no chest discomfort and only mild lightheadedness. Her resting ECG was normal with normal ST segments. There were no significant ST-segment shifts or arrhythmias with stress. Per protocol, 25.8 millicuries of technetium-99m Myoview was injected and she was imaged 10 minutes later using a gated SPECT acquisition protocol. Earlier in the day while at rest, she had been injected with 12.5 millicuries of technetium-99m Myoview and was imaged 20 minutes later, again using a gated SPECT acquisition protocol. FINDINGS: 1. Raw data. There is good myocardial tracer uptake with mild breast shadows noted. The lung/heart ratio is at the upper limits of normal at 0.42, although is not visually evident and thus lacks specificity. The TID ratio is normal at 0.77. 2. Quantitated gated SPECT: Post-stress ejection fraction is estimated at 95%, likely an overestimate because of relatively small left ventricular volumes. There are no focal wall motion abnormalities. The resting ejection fraction is estimated at 85% with a normal resting end-diastolic volume of 79 mL. 3. Myocardial perfusion imaging: Post-stress supine images show normal myocardial perfusion pattern without any perfusion defects, supported by normal perfusion imaging in the prone position. The resting images show an identical perfusion pattern without any areas of improvement. IMPRESSION: 1. Normal myocardial perfusion study. 2. No evidence of myocardial ischemia or previous myocardial infarction. 3. High normal left ventricular systolic function without any focal wall motion abnormality. The lung/heart ratio is at the upper limits of normal at 0.42 which can be a sign of pulmonary congestion but is nonspecific. 4. No angina or ECG evidence of ischemia with pharmacologic vasodilator stress. Kami Gonzales - LAURIE/jarad/odalis doc#: [id number]/job#: [id number] dd: 10/15/2022 16:46:00 dt: 10/16/2022 00:16:00 DICTATING MD/COPIES TO: Oneil Escobedo MD; Bonnie Rogers M.D. COPIES MNE: MICHEAL;
== END ==
PROVIDERS: PCP Family Medicine; Referring Provider Internal Medicine Cardiovascular Disease; Visit Provider Internal Medicine Cardiovascular Disease
DX: R06.09 Other forms of dyspnea (principal); I10 Essential (primary) hypertension
CPT/HCPCS: 78452; 93017; A9502; J2785

== ENCOUNTER → 2022-11-18 11:21 | Outpatient (CLI) | payer MEDICARE, OTHER, SELFPAY ==
[2019-01-26 13:42] VITALS: BMI 25.4
[2022-11-18 17:45] LABS: Add Manual Diff / Slide Review NO; Basophils Absolute Auto 100 /uL (0-100); Basophils Percent Auto 0.9 % (0-2); Eosinophils Absolute Auto 200 /uL (0-450); Eosinophils Percent Auto 3.2 % (2-4); Hematocrit 42.1 % (36-46); Hemoglobin 14.2 g/dL (12.0-16.0); Lymphocytes Absolute Auto 1400 /uL (1100-4500); Lymphocytes Percent Auto 20.4 % (25-40); Mean Corpuscular HGB Conc 33.7 % (30-36); Monocytes Absolute Auto 600 /uL (0-900); Monocytes Percent Auto 8.9 % (3-14); Neutrophils Absolute Auto 4500 /uL (1500-7000); Neutrophils Percent Auto 66.6 % (50-75); Platelet Count 258 X10^3/uL (150-400); Red Blood Cell Count 4.74 X10^6/uL (4.0-5.2); White Blood Cell Count 6.7 X10^3/uL (4.5-11.0)
[2022-11-18 18:27] LABS: BUN Creatinine Ratio 19.8 (6-22); Blood Urea Nitrogen 22 mg/dL (7-17); Calcium 9.3 mg/dL (8.4-10.2); Carbon Dioxide 30 mmol/L (22-32); Chloride 103 mmol/L (98-107); Estimated Glomerular Filt Rate 50 mL/min (>60); Glucose 86 mg/dL (80-110); HEMOLYSIS < 15 (0-50); Potassium 4.2 mmol/L (3.4-5.1); Sodium 139 mmol/L (137-145)
[2022-11-18 18:44] LABS: Free T4, Direct Thyroxine 1.16 ng/dL (0.78-2.19)
[2022-11-18 18:58] LABS: Thyroid Stimulating Hormone 2.33 uIU/mL (0.47-4.68)
== END ==
PROVIDERS: PCP Family Medicine; Referring Provider Internal Medicine Cardiovascular Disease; Visit Provider Internal Medicine Cardiovascular Disease
DX: E78.5 Hyperlipidemia, unspecified (principal); R06.09 Other forms of dyspnea; I10 Essential (primary) hypertension
CPT/HCPCS: 36415; 80048; 84439; 84443; 85025

== ENCOUNTER 2022-11-29 17:48 | Emergency (ER) | payer MEDICARE, OTHER, SELFPAY ==
[2019-01-26 13:42] VITALS: BMI 25.4
[2022-11-29] VITALS (21 sets, daily range): BP systolic 159–233; BP diastolic 78–111; PULSE 63–79; RESP 14–33; TEMP 36.3; O2SAT 90–99; BMI 25.0
--- NOTE | 2022-11-29 17:58 | DI.RAD.S_ITS ---
PROCEDURE: XR CHEST 1V INDICATIONS: chest pain TECHNIQUE: One view of the chest was acquired. COMPARISON: [facility], CR, XR CHEST 2V, 02/11/2022, 12:12. FINDINGS: Surgical changes and devices: None. Lungs and pleura: Lungs are clear. No pleural effusions or pneumothorax. Mediastinum: Mediastinal contours appear normal. Heart size is normal. Bones and chest wall: No suspicious bony lesions. Overlying soft tissues appear unremarkable. IMPRESSION: No acute process. Dictated by: Carol Gutierrez M.D. on 11/29/2022 at 17:40 Approved by: Carol Gutierrez M.D. on 11/29/2022 at 17:41
[2022-11-29 18:15] LABS: Add Manual Diff / Slide Review NO; Basophils Absolute Auto 100 /uL (0-100); Basophils Percent Auto 1.1 % (0-2); Eosinophils Absolute Auto 300 /uL (0-450); Eosinophils Percent Auto 3.4 % (2-4); Hematocrit 43.3 % (36-46); Hemoglobin 14.5 g/dL (12.0-16.0); Lymphocytes Absolute Auto 1600 /uL (1100-4500); Lymphocytes Percent Auto 19.8 % (25-40); Mean Corpuscular HGB Conc 33.6 % (30-36); Mean Corpuscular Hemoglobin 30.2 PG (26-34); Mean Corpuscular Volume 89.8 fL (80-100); Monocytes Absolute Auto 600 /uL (0-900); Monocytes Percent Auto 7.8 % (3-14); Neutrophils Absolute Auto 5500 /uL (1500-7000); Neutrophils Percent Auto 67.9 % (50-75); Platelet Count 248 X10^3/uL (150-400); Red Blood Cell Count 4.82 X10^6/uL (4.0-5.2); Red Cell Distribution Width 14.2 % (11.6-14.8); White Blood Cell Count 8.1 X10^3/uL (4.5-11.0)
[2022-11-29 18:19] LABS: INR 1.1 (0.9-1.3); Prothrombin Time 12.7 SECONDS (10.1-12.7)
--- NOTE | 2022-11-29 18:38 | ED_ITS ---
HPI - Neuro Symptoms/Deficit General Chief Complaint: Eye Problems Stated Complaint: Sparklers in eye Time Seen by Provider: 11/29/22 18:26 Source: patient Mode of arrival: Ambulatory History of Present Illness HPI Narrative: Patient is a 82-year-old female history of hypertension hyperlipidemia presenting today with flashing lights in her right eye. She reports that she was shopping on the computer for 45 minutes to an hour when she saw ?sparklers in her eye. She describes them as flashing lights. Lasting for about 20 minutes. She had no loss of vision no current enclosing no pain. She denies any headache. No nausea vomiting numbness tingling or weakness. No prior history of stroke. She now feels back to her normal self however her blood pressure is noted to be quite elevated pretty persistently greater than 200/100. On Anticoagulants: No Related Data Home Medications Medication Instructions Recorded Confirmed aspirin 81 mg tablet,delayed 81 mg PO QPM 12/15/18 01/29/22 release (Seferino Low Dose Aspirin) atorvastatin 10 mg tablet 10 mg PO QPM 12/15/18 01/29/22 losartan 50 mg tablet 50 mg PO DAILY 01/26/19 01/29/22 carvedilol phosphate 20 mg 60 mg PO DAILY 01/29/22 01/29/22 capsule,ext.[id number] multiphase Previous Rx's Medication Instructions Recorded cyclobenzaprine 5 mg tablet 5 mg PO BEDTIME Muscle spasms #20 08/11/19 tabs Allergies Allergy/AdvReac Type Severity Reaction Status Date / Time latex Allergy Intermediate Redness of Verified 08/11/19 15:22 Skin lisinopril Allergy Intermediate Rash Verified 08/11/19 15:22 codeine Allergy Mild Nausea Verified 08/11/19 15:22 Review of Systems Review of Systems ROS Unobtainable: All systems reviewed & are unremarkable except as noted in HPI and below Hematologic/Lymphatic On Anticoagulants: No Patient History Medical History (Updated 11/29/22 @ 20:21 by Cierra Zepeda DO) Alopecia Colon polyps Dyslipidemia History of foot fracture Hypertension Melanoma Osteoarthritis Osteopenia Overactive bladder Surgical History H/O Achilles tendon repair H/O melanoma excision S/P foot surgery, right Family History Father Hypertension Social History marital status: household members: spouse Smoking Status: Never smoker alcohol intake: current substance use type: does not use Smoking Status: Never smoker alcohol intake frequency: 0-2 drinks per day Alcohol type: wine Substance Use Type: does not use Exam Initial Vital Signs Initial Vital Signs: Vital Signs Temperature 97.3 F L 11/29/22 17:52 Pulse Rate 68 11/29/22 17:52 Respiratory Rate 18 11/29/22 17:52 Blood Pressure 201/98 H 11/29/22 17:52 Pulse Oximetry 98 11/29/22 17:52 Oxygen Delivery Method Room Air 11/29/22 17:52 GENERAL: Alert well-appearing 82-year-old female and in no acute distress. HEENT: Head atraumatic,EOMI, pupils reactive, face symmetric, moist mucous membranes EYES: EOMI, EVELIN, pressure in right 20mmHg, pressure and left 20mmHg,m ultrasound both eyes does not show any retinal detachment or vitreous humor detachment CARDIOVASCULAR: Regular rate and rhythm without murmurs, rubs or gallops. RESPIRATORY: Breath sounds equal bilaterally, no wheezes rales or rhonchi. ABDOMEN: Soft, nontender. Normoactive bowel sounds all 4 quadrants. No guarding or rebound. : No CVA tenderness EXTREMITIES: Normal range of motion, no clubbing or edema. Neurovascularly intact NEUROLOGICAL: Alert and oriented x4.Normal gait and speech. Cranial nerves II through XII grossly intact. Good lkseza-ps-bzxo, good dyry-xb-ghib, strength equal bilaterally, no dysarthria or aphasia, sensation in tact to soft touch bilaterally, no visual changes, no facial droop SKIN: Warm, dry, no laceration, no petechiae, no rashes or lesions. Scores NIH Stroke Scale Level of Conciousness: Alert, keenly responsive Ask month/age: Answers both questions correctly. Open/close eyes, close hand: Performs both tasks correctly Best gaze horizontal: Normal Visual rodríguez: No visual loss Facial palsy: Normal symetrical movement Left arm drift: No drift for full 10 sec Right arm drift: No drift for full 10 sec Left leg drift: No drift for full 5 sec Right leg drift: No drift for full 5 sec Limb ataxia: Absent Sensory on face/arms/legs: Normal, no sensory loss Best language: No aphasia, normal Dysarthria: Normal Extinction or inattention: No abnormality Total NIH Stroke scale score: 0 Course Orders Ordered: ED Orders 11/29/22 17:58 XR chest 1V Stat 11/29/22 18:05 Complete Blood Count AUTO DIFF Stat Comprehensive Metabolic Panel Stat Lipase Stat Magnesium Stat Prothrombin Time INR Stat Troponin & CK Cardiac Panel Stat 11/29/22 18:30 EKG-12 Lead Stat 11/29/22 18:42 CT angio head and neck Stat Discontinued Medications Carvedilol (Carvedilol 12.5 Mg Tablet) 25 mg PO NOW ONE Stop: 11/29/22 20:14 Labetalol HCl (Labetalol 20 Mg/4 Ml Syringe) 5 mg IV NOW ONE; Protocol Stop: 11/29/22 18:43 Last Admin: 11/29/22 18:50 Dose: 5 mg Documented By: BROOK[place]N Proparacaine HCl (Proparacaine 0.5% Ophth Neisha) 1 drops EYE-RIGHT NOW ONE Stop: 11/29/22 20:22 Last Admin: 11/29/22 20:37 Dose: 1 drops Documented By: BR[place]N Vital Signs Vital signs: Vital Signs - 8 hr 11/29/22 17:52 11/29/22 18:50 11/29/22 18:12 Temperature 97.3 F L Pulse Rate 68 70 79 Respiratory Rate 18 Blood Pressure 201/98 H 213/100 H Pulse Oximetry 98 95 Oxygen Delivery Method Room Air 11/29/22 18:14 11/29/22 18:14 11/29/22 18:23 Temperature Pulse Rate 70 69 Respiratory Rate Blood Pressure 227/101 H Pulse Oximetry 96 97 Oxygen Delivery Method 11/29/22 18:23 11/29/22 18:25 11/29/22 18:25 Temperature Pulse Rate 70 Respiratory Rate Blood Pressure 213/101 H 221/100 H Pulse Oximetry 97 Oxygen Delivery Method 11/29/22 18:30 11/29/22 18:30 11/29/22 19:00 Temperature Pulse Rate 71 Respiratory Rate 18 Blood Pressure 213/100 H 171/84 H Pulse Oximetry 97 Oxygen Delivery Method 11/29/22 19:00 11/29/22 19:01 11/29/22 19:01 Temperature Pulse Rate 63 64 Respiratory Rate 20 33 H Blood Pressure 191/111 H Pulse Oximetry 97 95 Oxygen Delivery Method Room Air 11/29/22 19:02 11/29/22 19:35 11/29/22 19:40 Temperature Pulse Rate 65 Respiratory Rate 31 H Blood Pressure 192/88 H 197/90 H Pulse Oximetry 96 Oxygen Delivery Method 11/29/22 21:03 11/29/22 19:50 11/29/22 20:13 Temperature Pulse Rate 67 64 Respiratory Rate 14 Blood Pressure 183/78 H 178/78 H 183/78 H Pulse Oximetry 98 Oxygen Delivery Method Room Air 11/29/22 20:14 11/29/22 20:14 11/29/22 20:20 Temperature Pulse Rate 68 67 Respiratory Rate 25 H 25 H Blood Pressure 172/83 H Pulse Oximetry 94 98 Oxygen Delivery Method 11/29/22 20:20 11/29/22 20:30 11/29/22 20:30 Temperature Pulse Rate 63 Respiratory Rate 19 Blood Pressure 165/81 H 159/78 H Pulse Oximetry 99 Oxygen Delivery Method 11/29/22 20:41 11/29/22 20:41 11/29/22 20:48 Temperature Pulse Rate 69 Respiratory Rate 31 H Blood Pressure 198/90 H Pulse Oximetry 90 L 98 Oxygen Delivery Method 11/29/22 20:54 Temperature Pulse Rate Respiratory Rate Blood Pressure 233/98 H Pulse Oximetry Oxygen Delivery Method MDM - Neuro Symptoms/Deficit Lab Data 11/29/22 18:05 11/29/22 18:05 Labs: Lab Results 11/29/22 11/29/22 11/29/22 Range/Units 18:05 18:05 18:05 WBC 8.1 (4.5-11.0) X10^3/uL RBC 4.82 (4.0-5.2) X10^6/uL Hgb 14.5 (12.0-16.0) g/dL Hct 43.3 (36-46) % MCV 89.8 (80-100) fL MCH 30.2 (26-34) PG MCHC 33.6 (30-36) % RDW 14.2 (11.6-14.8) % Plt Count 248 (150-400) X10^3/uL Neut % (Auto) 67.9 (50-75) % Lymph % (Auto) 19.8 L (25-40) % [place] % (Auto) 7.8 (3-14) % Eos % (Auto) 3.4 (2-4) % Baso % (Auto) 1.1 (0-2) % Neut # (Auto) 5500 (5633-1709) /uL Lymph # (Auto) 1600 (4809-2085) /uL [place] # (Auto) 600 (0-900) /uL Eos # (Auto) 300 (0-450) /uL Baso # (Auto) 100 (0-100) /uL PT 12.7 (10.1-12.7) SECONDS INR 1.1 (0.9-1.3) Sodium 139 (137-145) mmol/L Potassium 3.7 (3.4-5.1) mmol/L Chloride 103 (98-107) mmol/L Carbon Dioxide 29 (22-32) mmol/L BUN 17 (7-17) mg/dL Creatinine 0.76 (0.52-1.04) mg/dL Estimated GFR > 60 (>60) mL/min BUN/Creatinine Ratio 22.4 H (6-22) Glucose 89 (80-110) mg/dL Calcium 9.1 (8.4-10.2) mg/dL Magnesium 2.2 (1.6-2.3) mg/dL Total Bilirubin 0.8 (0.2-1.3) mg/dL AST 30 (14-36) IU/L ALT 28 (<35) IU/L Alkaline Phosphatase 79 (38-126) U/L Total Creatine Kinase 45 (30-135) U/L CK-MB (CK-2) TNP CK-MB (CK-2) Rel Index TNP Troponin I < 0.012 (0.01-0.034) ng/mL Total Protein 7.4 (6.3-8.2) g/dL Albumin 4.2 (3.5-5.0) g/dL Globulin 3.2 (1.7-4.1) g/dL Albumin/Globulin Ratio 1.3 (1.0-2.8) Lipase 126 (23-300) U/L Urine Dip Bedside Urine Glucose Negative Bedside Urine Bilirubin - Negative Bedside Urine Ketone - Negative Urine Specific [place] 1.010 Bedside Urine Occult Blood - Negative Bedside Urine pH 6.5 Bedside Urine Protein - Negative Bedside Urine Urobilinogen - Negative Bedside Urine Nitrite - Negative Bedside Urine Leukocytes - Negative Esterase Imaging Data CTA - brain/neck: Radiologist's Impression: PROCEDURE:? CT ANGIO HEAD AND NECK ? INDICATIONS:? flashing lights hypertension ? TECHNIQUE:? Pre-contrast 4.5 mm thick sections acquired from the foramen magnum to the vertex.? After the administration of intravenous contrast, 1 mm thick sections acquired from the aortic arch through the [place] of [place].? Post-contrast 4.5 mm thick sections then re- acquired from the foramen magnum to the vertex.? 3-dimensional xahsnvj-kzxqmvrei-xehpwdyrfr (MIP) and/or volume rendering reformats were acquired of the central intracranial vasculature and neck separately. For radiation dose reduction, the following was used:? automated exposure control, adjustment of mA and/or kV according to patient size.? ? COMPARISON:? None. ? FINDINGS:? Image quality:? Excellent.? ? BRAIN:? CSF spaces:? Ventricles are normal in size and shape.? Basal cisterns are patent.? No extra-axial fluid collections.? ? Brain:? No midline shift.? No intracranial bleeds or masses.? Rico-white matter interface appears intact.? ? Skull and face:? Calvarium and facial bones appear intact, without suspicious lesions.? Orbits appear normal.? ? Sinuses:? Sinuses and mastoids are clear.? ? HEAD CT ANGIOGRAPHY:? Anterior circulation:? Intracranial internal carotid arteries are normal in size and flow.? There are calcified plaques in the cavernous segment of the internal carotid arteries bilaterally.? The flow within the paired anterior cerebral arteries is normal and symmetric.? The flow within the middle cerebral arteries is normal and symm etric.? The anterior communicating artery is seen.? No aneurysms are seen.? ? Posterior circulation:? Visualized portions of the vertebral arteries demonstrate normal caliber, and join to form a normal appearing basilar artery.? Flow within the posterior cerebral arteries is normal and symmetric.? No aneurysms are seen.? ? NECK CT ANGIOGRAPHY:? Carotid system:? The great vessels demonstrate a conventional anatomy as they arise from the aortic arch.? The origins of the common carotid arteries appear patent.? The common carotid arteries demonstrate normal caliber and courses.? The bifurcation re gions are both widely patent.? The internal carotid arteries demonstrate normal calibers and courses.? ? Posterior circulation:? The left vertebral artery arises from the aorta, which is a normal variant.? The origins of the vertebral arteries both appear widely patent.? The more superior extracranial portions of both vertebral arteries also demonstrate normal courses and calibers.? They join to form a normal appearing basilar artery.? ? Soft tissues:? Visualized neck soft tissues demonstrate no suspicious abnormalities.? There is a 0.8 cm nodule in the right upper lobe ? Bones:? No suspicious bony lesions.? Visualized cervical spine appears normally aligned.? IMPRESSION:? ? 1. No acute intracranial abnormalities. ? 2. No hemodynamic significant stenosis in anterior or posterior circulations. ? 3. No hemodynamic significant stenosis in cervical carotid arteries or vertebral arteries bilaterally. ? 4. A 0.8 cm nodule in the right upper lobe.? Recommend a nonurgent follow-up chest CT for further evaluation. ? ? Any quantitative measurements of stenosis were performed using NASCET criteria.? ? ? Dictated by: Reanna Harrison M.D. on 11/29/2022 at 19:31? ECG Data Interpretation: Normal sinus rhythm rate 67 IN interval 146 QRS [address] changes no T- wave inversions MDM Narrative Medical decision making narrative: Patient 82-year-old female presents to do flashing lights and hypertension. She reports it started after looking at a computer for about an hour. She is an NIH stroke scale of 0 but noted to be quite hypertensive in the emergency department. No other focal deficits. Blood work is overall reassuring without signs of end-organ damage. No leukocytosis anemia electrolyte abnormality or EDDIE. Troponin is also negative. CT angio head and neck does not show any significant stenosis or abnormality. I suspect that patient has an ocular migraine. There is no evidence of retinal detachment CVA or acute angle glaucoma. Blood pressure was actually quite high she required 1 dose of labetalol which helped. Blood pressure kind of fluctuated up and down. She is to go home and take her nightly carvedilol. Discussed with her that she should follow-up with ophthalmology, she sees Dr. Triana. Discharge Plan Departure Patient Disposition: Home Clinical Impression: Ocular migraine Instructions: Ocular Hypertension Activity Restrictions/Additional Instructions: *You have been diagnosed with ocular migraine *What to do: At this time I think he had an ocular migraine. Please continue to monitor and check your blood pressure at home *Continue to take medications as directed *Follow up with your primary care provider in 2-3 days or call [phone] Call your welfare interviewer tomorrow to schedule follow-up appointment as soon as possible *Return to ER if you should have recurrence of flashing lights visual changes weakness numbness tingling facial droop or any new, worsening or concerning symptoms Prescriptions: No Action carvedilol phosphate 20 mg capsule, ER multiphase 24 hr 60 mg PO DAILY Rx Instructions: must administer with a meal/food cyclobenzaprine 5 mg tablet 5 mg PO BEDTIME Qty: 20 0RF Rx Instructions: Take 1-2 tabs as needed. atorvastatin 10 mg Tablet 10 mg PO QPM aspirin [Sefeirno Low Dose Aspirin] 81 mg Tablet,Delayed Release (Dr/Ec) 81 mg PO QPM losartan 50 mg tablet 50 mg PO DAILY Referrals: Lauren Triana MD [Physician] - Cece Edwards MD [Primary Care Provider] - Stand Alone Forms: Patient Portal/API
[2022-11-29 18:40] LABS: Alanine Aminotransferase 28 IU/L (<35); Albumin 4.2 g/dL (3.5-5.0); Albumin Globulin Ratio 1.3 (1.0-2.8); Alkaline Phosphatase 79 U/L (38-126); Aspartate Aminotransferase 30 IU/L (14-36); BUN Creatinine Ratio 22.4 (6-22); Bilirubin Total 0.8 mg/dL (0.2-1.3); Blood Urea Nitrogen 17 mg/dL (7-17); Calcium 9.1 mg/dL (8.4-10.2); Carbon Dioxide 29 mmol/L (22-32); Chloride 103 mmol/L (98-107); Creatine Kinase 45 U/L (30-135); Estimated Glomerular Filt Rate > 60 mL/min (>60); Globulin 3.2 g/dL (1.7-4.1); Glucose 89 mg/dL (80-110); HEMOLYSIS 34 (0-50); Lipase 126 U/L (23-300); Magnesium 2.2 mg/dL (1.6-2.3); Potassium 3.7 mmol/L (3.4-5.1); Sodium 139 mmol/L (137-145); Total Protein 7.4 g/dL (6.3-8.2)
--- NOTE | 2022-11-29 18:42 | DI.CT.S_ITS ---
PROCEDURE: CT ANGIO HEAD AND NECK INDICATIONS: flashing lights hypertension TECHNIQUE: Pre-contrast 4.5 mm thick sections acquired from the foramen magnum to the vertex. After the administration of intravenous contrast, 1 mm thick sections acquired from the aortic arch through the [place] of [place]. Post-contrast 4.5 mm thick sections then re-acquired from the foramen magnum to the vertex. 3-dimensional yxcozob-qvgiosryy-sftblqxxmo (MIP) and/or volume rendering reformats were acquired of the central intracranial vasculature and neck separately. For radiation dose reduction, the following was used: automated exposure control, adjustment of mA and/or kV according to patient size. COMPARISON: None. FINDINGS: Image quality: Excellent. BRAIN: CSF spaces: Ventricles are normal in size and shape. Basal cisterns are patent. No extra-axial fluid collections. Brain: No midline shift. No intracranial bleeds or masses. [place]-white matter interface appears intact. Skull and face: Calvarium and facial bones appear intact, without suspicious lesions. Orbits appear normal. Sinuses: Sinuses and mastoids are clear. HEAD CT ANGIOGRAPHY: Anterior circulation: Intracranial internal carotid arteries are normal in size and flow. There are calcified plaques in the cavernous segment of the internal carotid arteries bilaterally. The flow within the paired anterior cerebral arteries is normal and symmetric. The flow within the middle cerebral arteries is normal and symmetric. The anterior communicating artery is seen. No aneurysms are seen. Posterior circulation: Visualized portions of the vertebral arteries demonstrate normal caliber, and join to form a normal appearing basilar artery. Flow within the posterior cerebral arteries is normal and symmetric. No aneurysms are seen. NECK CT ANGIOGRAPHY: Carotid system: The great vessels demonstrate a conventional anatomy as they arise from the aortic arch. The origins of the common carotid arteries appear patent. The common carotid arteries demonstrate normal caliber and courses. The bifurcation regions are both widely patent. The internal carotid arteries demonstrate normal calibers and courses. Posterior circulation: The left vertebral artery arises from the aorta, which is a normal variant. The origins of the vertebral arteries both appear widely patent. The more superior extracranial portions of both vertebral arteries also demonstrate normal courses and calibers. They join to form a normal appearing basilar artery. Soft tissues: Visualized neck soft tissues demonstrate no suspicious abnormalities. There is a 0.8 cm nodule in the right upper lobe Bones: No suspicious bony lesions. Visualized cervical spine appears normally aligned. IMPRESSION: 1. No acute intracranial abnormalities. 2. No hemodynamic significant stenosis in anterior or posterior circulations. 3. No hemodynamic significant stenosis in cervical carotid arteries or vertebral arteries bilaterally. 4. A 0.8 cm nodule in the right upper lobe. Recommend a nonurgent follow-up chest CT for further evaluation. Any quantitative measurements of stenosis were performed using NASCET criteria. Dictated by: Reanna Harrison M.D. on 11/29/2022 at 19:31 Approved by: Reanna Harrison M.D. on 11/29/2022 at 19:38
[2022-11-29] MEDS: LABETALOL 20 MG/4 ML SYRINGE 5 MG IV (18:50)
[2022-11-29 18:51] LABS: Troponin I < 0.012 ng/mL (0.01-0.034)
[2022-11-29] MEDS: PROPARACAINE 0.5% OPHTH SOL 1 DROPS EYE-RIGHT (20:37)
== END 2022-11-29 21:06 | disposition home or self-care (01) ==
PROVIDERS: Emergency Provider Emergency Medicine; PCP Family Medicine
DX: G43.109 Migraine with aura, not intractable, without status migrainosus (principal); I10 Essential (primary) hypertension; R07.9 Chest pain, unspecified
CPT/HCPCS: 36415; 70496; 70498; 71045; 80053; 81003; 82550; 83690; 83735; 84484; 85025; 85610; 93005; 93010; 96374; 99284; Q9967

== ENCOUNTER → 2023-08-11 12:27 | Outpatient (CLI) | payer MEDICARE, OTHER, SELFPAY ==
[2019-01-26 13:42] VITALS: BMI 25.4
--- NOTE | 2023-08-11 12:30 | DI.RAD.S_ITS ---
PROCEDURE: XR LUMBAR SPINE 2-3V INDICATIONS: LOW BACK PAIN TECHNIQUE: 3 views of the lumbar spine were acquired. COMPARISON: None. FINDINGS: Bones: 5 qlx-mqh-yvdwjpy vertebrae are present. There is normal bony alignment. No vertebral body compression fractures. No suspicious bony lesions. Disc space narrowing present throughout the exam. Hypertrophic facet joints noted particularly in the lower lumbar spine. Generalized decreased osseous mineralization noted. Mild degenerative convex left thoracolumbar scoliosis. Soft tissues: Overlying bowel gas pattern is normal. Midline soft tissue calcifications in the pelvis probably reflect calcified fibroids IMPRESSION: Degenerative disc disease, arthropathy and osteopenia without fracture or traumatic malalignment Approved by: Cj Viramontes M.D. on 08/11/2023 at 15:57
== END ==
PROVIDERS: PCP Family Medicine; Referring Provider Family Medicine; Visit Provider Family Medicine
DX: M51.36 Other intervertebral disc degeneration, lumbar region (principal); M47.816 Spondylosis without myelopathy or radiculopathy, lumbar region; M85.88 Other specified disorders of bone density and structure, other site; M54.50 Low back pain, unspecified
CPT/HCPCS: 72100

== ENCOUNTER → 2023-08-23 12:26 | Outpatient (CLI) | payer MEDICARE, OTHER, SELFPAY ==
[2019-01-26 13:42] VITALS: BMI 25.4
--- NOTE | 2023-08-23 | DI.ECHO.S_ITS ---
[place] [facility]---------+ [facility] +---------+ : : [address] [place] [address] : : : : [id number] : : : : Phone: [phone] Echocardiogram Report + + :Name: LUCÍA ABURTO Study Date: 08/23/2023 Height: 68 in : :[facility] ReadingLocation: Weight: 160 lb : : Gender: Female BSA: 1.9 m2 : :: 1940 Age: 82 yrs BP: 174/97 mmHg: :Reason For Study: HYPTERTENSION : :Ordering Physician: GRANT, : :MARINA Performed By: Sergio Arellano : :Referring: MARINA BURNS : + + Interpretation Summary There is mild concentric left ventricular hypertrophy. The ejection fraction is estimated to be 60-65%. Grade I diastolic dysfunction. The right ventricle is normal in size and function. There is mild mitral regurgitation. There is trace aortic regurgitation. Pulmonary artery pressures cannot be estimated because of the lack of a measurable TR jet velocity but the IVC suggests a CVP of around 3 mmHg. Compared to the prior study dated 04/15/2022, there is a slight decrease in the mitral regurgitation. Procedure: A two-dimensional transthoracic echocardiogram with color flow and Doppler was performed. The study quality was technically adequate. Comparison is made with the echocardiogram of 04/15/22. The patient was in normal sinus rhythm during the exam. The heart rate ranged between 68-78 bpm during the study. Left Ventricle: The left ventricle is normal in size. There is mild concentric left ventricular hypertrophy. The ejection fraction is estimated to be 60-65%. Diastolic parameters suggest a relaxation abnormality of the left ventricle, consistent with probable normal filling pressures. Right Ventricle: The right ventricle is normal in size and function. The right ventricular systolic function is normal. Atria: The left atrial size is normal. Right atrial size is normal. Mitral Valve: The mitral valve is normal. There is mild mitral annular calcification. There is no mitral valve stenosis. There is mild mitral regurgitation. Aortic Valve: The aortic valve is trileaflet. There is no aortic valve stenosis. There is trace aortic regurgitation. Tricuspid Valve: The tricuspid valve is normal in structure and function. There is no tricuspid stenosis. No tricuspid regurgitation. Pulmonary artery pressures cannot be estimated because of the lack of a measurable TR jet velocity but the IVC suggests a CVP of around 3 mmHg. Pulmonic Valve: The pulmonic valve is not well visualized. There is no pulmonic valvular stenosis. There is no pulmonic valvular regurgitation. Great Vessels: The aortic root is normal size. The dimensions of the ascending aorta are normal. The IVC is of normal diameter and collapses greater than 50% with a sniff. This suggests a low right atrial pressure of 3 mm Hg. Pericardium/ Pleura There is no pericardial effusion. There is no pleural effusion. MMode/2D Measurements & Calculations LVIDd: 4.2 cm LVOT diam: 1.8 cm LVIDs: 2.5 cm Ao root diam: 2.7 cm FS: 40.6 % asc Aorta Diam: 3.2 cm IVSd: 1.2 cm Ao Arch Diam (Prox Trans): 2.9 cm LVPWd: 1.1 cm LV forbes. diameter/BSA (cm/m^2): 2.3 LV sys. diameter/BSA (cm/m^2): 1.3 LA A2 area: 18.4 cm2 RA long axis: 4.5 cm LA A4 area: 18.8 cm2 RA area: 13.2 cm2 LA length (vol): 5.3 cm RA vol: 32.7 ml LA vol: 55.4 ml RA : 17.6 ml/m2 LA vol index: 29.8 ml/m2 IVC diam: 1.9 cm RVD1 (basal): 4.0 cm RVD2 (mid): 3.1 cm TAPSE: 2.2 cm Doppler Measurements & Calculations Ao V2 max: 166.3 cm/sec LVOT Max Bg: 121.2 cm/sec Ao V2 mean: 115.9 cm/sec LV V1 max P.9 mmHg Ao max P.1 mmHg LV V1 VTI: 31.1 cm Ao mean P.9 mmHg TASIA(I,D): 1.9 cm2 Ao V2 VTI: 40.1 cm TASIA(V,D): 1.8 cm2 sev ratio: 0.78 TASIA indexed to BSA (cm^2/m^2): 1.0 MV E max bg: 80.3 cm/sec PA V2 max: 94.4 cm/sec MV A max bg: 79.9 cm/sec PA V2 mean: 71.0 cm/sec MV E/A: 1.0 PA mean P.1 mmHg Med Peak E' Bg: 8.4 cm/sec PA pr(Accel): 8.8 mmHg E/E' med: 9.6 Lat Peak E' Bg: 6.9 cm/sec E/E' lat: 11.7 E/e' average: 10.6 MV dec time: 0.22 sec SV(OT): 77.0 ml Reading Physician:11:01 AM
== END ==
PROVIDERS: PCP Family Medicine; Referring Provider Family Medicine; Visit Provider Family Medicine
DX: I34.81 Nonrheumatic mitral (valve) annulus calcification (principal); I34.0 Nonrheumatic mitral (valve) insufficiency; I51.7 Cardiomegaly; I10 Essential (primary) hypertension
CPT/HCPCS: 93306

== ENCOUNTER → 2023-09-12 15:32 | Outpatient (CLI) | payer MEDICARE, OTHER, SELFPAY ==
[2019-01-26 13:42] VITALS: BMI 25.4
--- NOTE | 2023-09-12 | DI.MRI.S_ITS ---
PROCEDURE: MR LUMBAR SPINE WO CON INDICATIONS: Radiculopathy, lumbar region TECHNIQUE: Noncontrast sagittal T1 spin echo and T2 fast echo, sagittal STIR, and T2 fast spin echo through the lumbar spine. In cases with scoliosis, additional coronal T2 fast spin echo may be performed. COMPARISON: [facility], CR, XR LUMBAR SPINE 2-3V, 08/11/2023, 12:51. FINDINGS: Image quality: Excellent. Alignment and Curvature: Trace anterolisthesis of L3 on L4 and L4 on L5. Bone Marrow: Marrow is of normal overall signal. No acute vertebral body compression fractures. Spinal Cord: Conus medullaris terminates at the L1 level. Visualized cord demonstrates normal signal and size. Paraspinous Soft Tissues: No paravertebral masses. T11-T12: Normal appearance T12-L1: Normal appearance. L1-L2: Normal appearance. L2-L3: Mild disc bulge. No canal stenosis or foraminal stenosis. L3-L4: Disc bulge. Facet and ligament hypertrophy. Borderline canal stenosis. No significant foraminal stenosis. L4-L5: Chronic disc height loss. Facet hypertrophy. Mild canal stenosis. No significant foraminal stenosis. L5-S1: A small left posterior lateral disc protrusion impinges on the left S1 nerve root in the left lateral recess. Facet hypertrophy. No foraminal stenosis. IMPRESSION: 1. There is underlying lower lumbar facet arthropathy. 2. At L5-S1, there is a focal left posterior lateral disc protrusion which impinges on the left S1 nerve root in the left lateral recess. Recommend correlation for presence or absence of left sciatica. 2. Mild canal stenosis at L4-L5. Dictated by: Clay Darnell M.D. on 09/13/2023 at 12:22 Approved by: Clay Darnell M.D. on 09/13/2023 at 12:32
== END ==
LOC: MRI 15:33
PROVIDERS: PCP Family Medicine; Referring Provider Family Medicine; Visit Provider Family Medicine
DX: M47.26 Other spondylosis with radiculopathy, lumbar region (principal); M47.27 Other spondylosis with radiculopathy, lumbosacral region; M51.16 Intervertebral disc disorders with radiculopathy, lumbar region; M51.17 Intervertebral disc disorders with radiculopathy, lumbosacral region; M48.061 Spinal stenosis, lumbar region without neurogenic claudication; M48.8X6 Other specified spondylopathies, lumbar region
CPT/HCPCS: 72148

== ENCOUNTER → 2023-12-16 13:09 | Outpatient (CLI) | payer MEDICARE, OTHER, SELFPAY ==
[2019-01-26 13:42] VITALS: BMI 25.4
--- NOTE | 2023-12-16 13:10 | DI.MG.S_ITS ---
BILATERAL DIGITAL SCREENING MAMMOGRAM 3D/2D WITH CAD: 12/16/2023 CLINICAL: Routine screening. Family history of breast cancer. Comparison is made to exams dated: 08/19/2022 mammogram, 06/19/2021 mammogram, and 05/07/2020 mammogram - [facility]. There are scattered areas of fibroglandular density in both breasts (category b / 25%-50% glandular tissue). Current study was also evaluated with a Computer Aided Detection (CAD) system. No significant masses, calcifications, or other findings are seen in either breast. There has been no significant interval change. IMPRESSION: NEGATIVE There is no mammographic evidence of malignancy. A 1 year screening mammogram is recommended. Based on the Tyrer Cuzick model (a risk assessment model) the patient's lifetime risk is 1.2% and her 10 year risk is 0.0%. According to the ACR, ACS, and NCCN guidelines, an annual breast MRI exam along with mammogram is recommended if the patient's lifetime risk is 20% or greater. This exam was interpreted at Station ID: [id number]. NOTE: For mammograms, a report in lay terms will be sent to the patient. Approximately 15% of breast malignancies will not be visualized mammographically. In the management of a palpable breast mass, a negative mammogram must not discourage biopsy of a clinically suspicious lesion. Electronically Signed By: Brandon hernandez/rina:12/16/2023 15:06:50 letter sent: Normal Exam ACR BI-RADS Category 1: Negative [id number]
== END ==
PROVIDERS: PCP Family Medicine; Referring Provider Family Medicine; Visit Provider Family Medicine
DX: Z12.31 Encounter for screening mammogram for malignant neoplasm of breast (principal); Z80.3 Family history of malignant neoplasm of breast; R92.323 Mammographic fibroglandular density, bilateral breasts
CPT/HCPCS: 77063; 77067

== ENCOUNTER → 2024-10-02 10:24 | Outpatient (CLI) | payer MEDICARE, OTHER, SELFPAY ==
[2019-01-26 13:42] VITALS: BMI 25.4
--- NOTE | 2024-10-02 10:26 | DI.RAD.S_ITS ---
PROCEDURE: XR DEXA AXIAL SKELETON INDICATIONS: SCREENING FOR OSTEOPORSIS / OSTEOPENIA COMPARISON: [facility], CR, XR DEXA AXIAL SKELETON, 11/19/2020, 10:29. FINDINGS: Lumbar Spine: Bone mineral density 0.772 (previously 1.017) g/cm2, T score -2.5 (previously-1.4). Left Femoral Neck: Bone mineral density 0.624 (previously 0.803) g/cm2, T score -2.0 (previously-1.7). Left Hip: Bone mineral density 0.713 (previously 0.785) g/cm2, T score -1.9 (previously-1.8). Fracture Risk Calculation (when applicable): 10-year fracture risk of a major osteoporotic fracture 15 percent and of a hip fracture 4.9 percent. (T score greater or equal to -1.0 to: NORMAL) (T score from -1.1 to -2.4: OSTEOPENIA) (T score less than or equal to -2.5: OSTEOPOROSIS) IMPRESSION: Osteoporosis---recommend repeat DEXA in 2 years or less for reassessment of response to treatment. Follow-up guidelines as follows: Osteoporosis: Consider a repeat DEXA and Vertebral Fracture Assessment (VFA) exam in 2 years or sooner if medically necessary, to reassess this patient's status. Osteopenia: Consider a repeat DEXA in 2-3 years to reassess this patient's status, or if there is a new clinical indication. Normal: Consider a repeat DEXA in 5 years or sooner, or if there is a new clinical indication. All treatment decisions require clinical judgment and consideration of individual patient factors, including patient preferences, comorbidities, previous drug use, risk factors not captured in the FRAX model (e.g., frailty, falls, vitamin D deficiency, increased bone turnover, interval significant decline in bone density ) and possible under- or over-estimation of fracture risk by FRAX. In addition, the NOF Guide recommends that FDA-approved medical therapies be considered in postmenopausal women and men age >= 50 years with a: * Hip or vertebral (clinical or morphometric) fracture * T-score of <=-2.5 at the spine or hip * Ten-year fracture probability by FRAX of >= 3% for hip fracture or >=20% for major osteoporotic fracture. Dictated by: Leighton Albert M.D. on 10/03/2024 at 3:39 Approved by: Leighton Albert M.D. on 10/03/2024 at 3:41
== END ==
LOC: RAD 10:25
PROVIDERS: PCP Family Medicine; Referring Provider Family Medicine; Visit Provider Family Medicine
DX: Z78.0 Asymptomatic menopausal state (principal); M81.0 Age-related osteoporosis without current pathological fracture
CPT/HCPCS: 77080

== ENCOUNTER → 2025-02-07 11:10 | Outpatient (CLI) | payer MEDICARE, OTHER, SELFPAY ==
[2019-01-26 13:42] VITALS: BMI 25.4
--- NOTE | 2025-02-07 | DI.RAD.S_ITS ---
PROCEDURE: XR CHEST 2V INDICATIONS: cough for 2 weeks TECHNIQUE: 2 views of the chest were acquired. COMPARISON: [facility], CR, XR CHEST 1V, 11/29/2022, 18:26. FINDINGS: Surgical changes and devices: None. Lungs and pleura: Lungs are clear. Minimal left basilar atelectasis. No pleural effusions or pneumothorax. Mediastinum: Mediastinal contours are normal. Heart size is normal. Atherosclerotic vascular calcifications. Bones and chest wall: No suspicious bony abnormalities. Soft tissues appear unremarkable. IMPRESSION: No acute cardiopulmonary abnormality is seen. Left basilar atelectasis. Dictated by: Leighton Albert M.D. on 02/09/2025 at 4:57 Approved by: Leighton Albert M.D. on 02/09/2025 at 4:58
== END ==
LOC: RAD 11:11
PROVIDERS: PCP Family Medicine; Referring Provider Family Medicine; Visit Provider Family Medicine
DX: R05.1 Acute cough (principal); J98.11 Atelectasis
CPT/HCPCS: 71046